=== PATIENT | female | born 1970 | race Caucasian/White ===

== ENCOUNTER → 2017-04-23 | Outpatient (CLI) | payer BC ==
[~2017-04-23] MED LIST: ALLOPURINOL100 MG PO; BACTRIM DS TAB1 EACH PO; BELLADONNA-OPI1 EACH PR; CEFTIN250 MG/5 M; CIPRO500 MG PO; DIFLUCAN150 MG PO; DITROPAN XL5 MG PO; ESTRADIOL1 MG PO; ESTRADIOL2 MG PO; KETOROLAC TROME10 MG PO; LISINOPRIL5 MG PO; NORCO 10-325 T1 EACH; POTASSIUM CHLO10 ME1 PO; POTASSIUM CITR10 MEQ PO; PROMETHAZINE HC25 M1 PO; SERTRALINE HCL100 MG PO; TAMSULOSIN HCL0.4 MG PO; TYLENOL WITH C1 EACH PO; ULTRAM50 MG PO; UROCIT-K15 MEQ PO; Z.0.ESTRACE0.5 MG PO; ZOLOFT100 MG PO
--- NOTE | 2017-04-23 12:46 | Diagnostic Imaging Report ---
PROCEDURE: CT ABDOMEN AND PELVIS WITHOUT CONTRAST TECHNIQUE: The abdomen and pelvis were scanned utilizing a multidetector helical scanner from the diaphragm to the lesser trochanter without contrast. No IV contrast was administered because per physician request). Coronal and sagittal multiplanar reformations were obtained. COMPARISON: [facility], CT, CT ABDOMEN/PELVIS , 12/05/2015, 11:22. INDICATIONS: R/O STONES FINDINGS: ABSENCE OF INTRAVENOUS CONTRAST DECREASES SENSITIVITY FOR DETECTION OF FOCAL LESIONS AND VASCULAR PATHOLOGY. LOWER THORAX: Mild bibasilar patchy ground glass density suggestive of subsegmental atelectasis. The HEPATOBILIARY: Severe hepatic steatosis again observed. No biliary ductal dilatation. SPLEEN: No splenomegaly. PANCREAS: No focal masses or ductal dilatation. ADRENALS: No adrenal nodules. KIDNEYS/URETERS: No hydronephrosis. Bilateral low-attenuation lesions consistent with cysts, the largest in the anterior interpolar region of the right kidney measuring 2.0 cm on image 72 series 3. There are bilateral nonobstructing renal calculi, the largest in the posterior interpolar region of the right kidney measuring 1.05 cm in the lower pole anteriorly on coronal image 63. There is a 0.8 cm calculus within the left renal pelvis on image 60 series 3; this calculus was previously located in the upper pole of the left kidney. A 0.8 cm high attenuation lesion in the upper pole of the left kidney laterally on image 45 series 3 represent a hyperdense cyst, however, not fully characterized due to the lack of contrast. A similar lesion measuring 0.8 cm is present no pole of the left kidney on images 76 series 3. PELVIC ORGANS/BLADDER: Status post hysterectomy. PERITONEUM / RETROPERITONEUM: No free air or fluid. LYMPH NODES: No lymphadenopathy. VESSELS: Unremarkable. GI TRACT: No distention or wall thickening. Hypodense foci within the otherwise normal appendix consistent with appendicoliths. BONES AND SOFT TISSUES: Small fat-containing left inguinal hernia. No acute osseous abnormality. IMPRESSION: 1. Bilateral nonobstructing nephrolithiasis as detailed above. No hydronephrosis. 2. Severe hepatic steatosis. Joseph Vance M.D. Dictated by: Joseph Vance M.D. on 04/23/2017 at 12:53 Electronically approved by: Joseph Vance M.D. on 04/23/2017 at 12:53
== END ==
LOC: CT 04-21 16:43
PROVIDERS: ATTEND Urology
DX: N20.0 Calculus of kidney (principal)
CPT/HCPCS: 74176

== ENCOUNTER 2017-04-29 09:49 | Observation (INO) | payer BC ==
[~2017-04-29] VITALS: Ht 160 cm; Wt 79.2 kg
[~2017-04-29 09:49] MED LIST changes: -CEFTIN250 MG/5 M; +CEFTRIAXONE SOD 1 GM VIAL ONE; -NORCO 10-325 T1 EACH
--- NOTE | 2017-04-29 10:01 | Diagnostic Imaging Report ---
PROCEDURE:X-RAY ABDOMEN - KUB COMPARISON:CT abdomen and pelvis 04/23/2017. CT abdomen and pelvis 12/05/2015 INDICATIONS:PREOPERATIVE XRAY FOR KIDNEY STONE REMOVAL FINDINGS: There is a non-obstructed bowel-gas pattern. There are no calcifications projected over the renal shadows, expected course of the ureters or bladder. Phleboliths are present in the pelvis. There are no acute osseous abnormalities. The lung bases are clear. CONCLUSION: No acute radiographic abnormality. Dictated by: Clifton Ward M.D. on 04/29/2017 at 10:09 Electronically approved by: Clifton Ward M.D. on 04/29/2017 at 10:09
[2017-04-29] MEDS ORDERED: BELLADONNA/OPIUM 60 MG SUPP PR ONE (10:34)
[2017-04-29] MEDS ORDERED: IOPAMIDOL 610MG/1ML 300 MG/ML VIAL IV ONE (10:34)
[2017-04-29] MEDS ORDERED: NALOXONE HCL INJ 0.4 MG/ML AMP IV PRN (11:30)
[2017-04-29] MEDS ORDERED: MORPHINE SULFATE 1 MG/ML 30ML PCA IV PRN (11:30)
[2017-04-29] MEDS ORDERED: ONDANSETRON HCL INJ 2 MG/ML VIAL IV PRN (11:30)
[2017-04-29] MEDS ORDERED: ACETAMINOPHEN 1000 MG/100 ML IV PRN (11:30)
[2017-04-29] MEDS ORDERED: DIPHENHYDRAMINE HCL INJ 50 MG/ML VIAL IM PRN (11:30)
[2017-04-29] MEDS ORDERED: FENTANYL CITRATE/PF 100MCG/2 ML INJ ONE ×2 (11:39→14:06)
[2017-04-29] MEDS ORDERED: METOCLOPRAMIDE HCL 10 MG/2ML VIAL ONE (11:39)
[2017-04-29] MEDS ORDERED: MORPHINE SULFATE 5 MG/ML VIAL ONE (13:39)
[2017-04-29] MEDS ORDERED: PROMETHAZINE HCL (IM) 25 MG/ML VIAL ONE (13:39)
[2017-04-29] MEDS ORDERED: MIDAZOLAM HCL 2 MG/2 ML VIAL ONE (14:06)
[2017-04-29] MEDS ORDERED: MORPHINE SULFATE 1 MG/ML 30ML PCA ONE (15:43)
[2017-04-29] MEDS: PHENAZOPYRIDINE HCL 100 MG TAB PO SCH ×2 (16:30→17:39)
[2017-04-29 16:31] VITALS: BP 139/63
[2017-04-29 16:34] VITALS: BP 139/63
[2017-04-29] MEDS: D5.45%NS/KCL 20MEQ 1,000 ML IV SCH (16:50)
[2017-04-29 17:01] VITALS: BP 139/63
[2017-04-29] MEDS: DOCUSATE SODIUM 100 MG CAP PO SCH (17:38)
[2017-04-29] MEDS ORDERED: LIDOCAINE HCL 2% LOCAL INJ 5 ML SDV VIAL INJ ONE (17:58)
[2017-04-29] MEDS ORDERED: PROPOFOL IV EMULSION 10 MG/ML 20 ML VIAL ONE (17:58)
[2017-04-29] MEDS ORDERED: DEXAMETHASONE SOD PHOS INJ 4 MG/ML VIAL ONE (17:58)
[2017-04-29] MEDS ORDERED: ONDANSETRON HCL INJ 2 MG/ML VIAL ONE (17:58)
[2017-04-29] MEDS ORDERED: SEVOFLURANE INHAL SOLN 250 ML PEN BTL ONE (17:58)
[2017-04-29 20:00] VITALS: BP 124/67
[2017-04-29] MEDS: BELLADONNA/OPIUM 60 MG SUPP PR PRN (21:41)
[2017-04-30] MEDS: D5.45%NS/KCL 20MEQ 1,000 ML IV SCH ×2 (01:45→12:30)
[2017-04-30 02:28] VITALS: BP 108/59
[2017-04-30] MEDS: BELLADONNA/OPIUM 60 MG SUPP PR PRN ×3 (03:33→15:55)
[2017-04-30 06:20] LABS: BASOPHILS % 0.1 % (0.0-1.0); EOSINOPHILS % 0.1 % (0.0-6.0); HEMATOCRIT 32.4 % (34.2-44.1); HEMOGLOBIN 10.7 g/dL (12.0-16.0); LYMPHOCYTES # (AUTO) 1.6 (1.0-3.2); LYMPHOCYTES % 16.2 % (18.0-39.1); MEAN CORPUSCULAR HEMOGLOBIN 29.1 pg (28-32); MONOCYTES # (AUTO) 0.7 (0.2-0.8); MONOCYTES % 6.6 % (4.4-11.3); NEUTROPHILS # (AUTO) 7.5 (2.1-6.9); NEUTROPHILS % 76.7 % (38.7-80.0); PLATELET COUNT 162 x10e3/uL (140-360); RED BLOOD COUNT 3.68 x10e6/uL (3.6-5.1); RED CELL DISTRIBUTION WIDTH 13.1 % (11.7-14.4)
[2017-04-30 06:36] VITALS: BP 106/55
[2017-04-30 06:46] LABS: ALANINE AMINOTRANSFERASE 53 IU/L (0-55); ALBUMIN 3.4 g/dL (3.5-5.0); ALKALINE PHOSPHATASE 59 IU/L (40-150); ANION GAP 13.6 mmol/L (8-16); BLOOD UREA NITROGEN 14 mg/dL (7-26); BUN/CREATININE RATIO 15 (6-25); CALCIUM 8.5 mg/dL (8.4-10.2); CARBON DIOXIDE 23 mmol/L (22-29); CHLORIDE 108 mmol/L (98-107); CREATININE, SERUM 0.92 mg/dL (0.57-1.11); EST GLOMERULAR FILTRATION RATE > 60 ML/MIN (60-); GLUCOSE 142 mg/dL (74-118); POTASSIUM 4.6 mmol/L (3.5-5.1); SODIUM 140 mmol/L (136-145)
[2017-04-30 07:40] VITALS: BP 113/56
[2017-04-30] MEDS: DOCUSATE SODIUM 100 MG CAP PO SCH ×2 (08:48→15:59)
[2017-04-30] MEDS: PHENAZOPYRIDINE HCL 100 MG TAB PO SCH ×3 (08:48→15:59)
[2017-04-30] MEDS ORDERED: CEFTRIAXONE SOD 1 GM VIAL IV SCH (09:00)
[2017-04-30 09:08] LABS: CHOL/HDL RATIO 5.5 (3.0-3.6)
[2017-04-30] MEDS ORDERED: HYDROCODONE/APAP 10MG-325MG TAB PO PRN (09:15)
--- NOTE | 2017-04-30 09:28 | History and Physical ---
SHORTSTAY CHIEF COMPLAINT: Flank pain. HISTORY OF PRESENT ILLNESS: This is a 46-year-old white woman who has a known history of recurrent nephrolithiasis. Patient underwent a CT of the abdomen and pelvis without contrast on April 23, 2017, which revealed bilateral nonobstructive nephrolithiasis, but it did reveal a 0.8-cm calculus within the left renal pelvis that previously was in the upper pole of the left kidney. Her urologist, namely Dr. Juan Jose Corbin, felt that since there was migration of this renal calculus, that further evaluation and treatment was necessary. Patient states that for the past week or 2 prior to admission she was experiencing left flank pain with visible hematuria. Patient denies any fever or chills. Yesterday on admission, the patient underwent successful left ureteroscopy with lower stent placement. The patient tolerated the procedure well. Patient was admitted to the observation unit for pain control. Patient is currently on a TOY STUFFER pump receiving intravenous morphine, which she is tolerating well. Patient voices no complaints today. Blood work done today revealed a white blood cell count of 9700 with 76% segmented neutrophils. Patient's hemoglobin was 10.7 g percent. Patient's BUN and creatinine is [address] of the abdomen and pelvis the patient underwent on April 23, 2017, did reveal severe hepatic steatosis. PAST MEDICAL HISTORY 1. Hypertension. 2. Recurrent nephrolithiasis. 3. Polycystic kidney/liver disease. 4. Prediabetes. 5. Fatty liver disease. 6. Migraine headaches. 7. Hypertensive heart disease. SURGICAL HISTORY 1. Left heart catheterization. 2. Total abdominal hysterectomy. 3. Left kidney cyst drainage. 4. Left ureteral stent placement and removal multiple times (last episode was yesterday, April 29, 2017). 5. Left foot surgery. 6. Right kidney cyst drainage. 7. Multiple cystoscopies with subsequent stent placement and stone extractions. FAMILY HISTORY: Multiple family members with polycystic kidney disease. ALLERGIES: NO KNOWN DRUG ALLERGIES. SOCIAL HISTORY: The woman is . She has 3 healthy children. Patient denies any tobacco use, but she does drink alcohol socially. MEDICATIONS 1. Tylenol No. 3 with codeine 1 pill every 6 hours p.r.n. pain. 2. Estradiol 2 mg daily. 3. Potassium tartrate 15 mEq t.i.d. PHYSICAL EXAMINATION GENERAL: She is awake, alert and oriented. Very pleasant and cooperative with exam. She is in no obvious distress. Her boyfriend is at bedside. VITALS: Height is 5 feet 3 inches, weight 174 pounds. Calculated body index 30. Blood pressure 160/55, pulse 55, respiratory rate 18, temperature 97.6, oxygen saturation 94% on room air. INTEGUMENT: Skin is warm and dry. No pallor of conjunctivae. Anicteric sclerae. Moist mucous membranes. CARDIOVASCULAR: Regular rate and rhythm. LUNGS: No rales. No rhonchi or wheezing. ABDOMEN: Soft. Normal bowel sounds. Nontender. SPINE/TORSO: Patient does have slight left flank tenderness. EXTREMITIES: Without edema or deformity. NEUROLOGICAL: Intact. IMPRESSION 1. Status post left ureteroscopy with left stent placement. 2. Bilateral nonobstructing nephrolithiasis. 3. Fatty liver disease. 4. Obesity. Calculated body mass index is 30. PLAN 1. Will discharge the patient home today with hydrocodone in the form of [place] 10 per 325 mg 1 pill every 6 hours p.r.n. pain, 20 prescribed and no refills. 2. Recommend the patient lose 10 pounds in regards to her fatty liver disease. 3. Informed the patient that she is not to drink more than 1-2 alcoholic drinks in a 24-hour period because of her fatty liver disease. 4. The patient will follow up with her primary care physician, namely myself, Dr. Luis A Condon, within the next 2-3 weeks. Will discuss case with the patient's urologist, namely Dr. Corbin. I spent 45 minutes in the care of this patient. Job#: [id number] FEDERICO NEW
[2017-04-30 11:44] VITALS: BP 126/58
[2017-04-30 15:49] VITALS: BP 112/56
[2017-04-30] MEDS ORDERED: NORCO 10-325 T1 EACH (16:21)
[2017-04-30] MEDS ORDERED: CEFTIN250 MG/5 M (16:21)
--- NOTE | 2017-07-02 02:33 | Operative Report ---
DATE OF PROCEDURE: April 29, 2017 PREOPERATIVE DIAGNOSES 1. Left nephrolithiasis. 2. Hematuria. POSTOPERATIVE DIAGNOSES 1. Left nephrolithiasis. 2. Hematuria. 3. Mild cystocele. 4. Minimal atrophic vaginitis. 5. Proximal left ureteral stricture. OPERATIONS PERFORMED 1. Cystourethroscopy with bilateral ureteral catheterization and retrograde ureteropyelography (separate procedure performed for the hematuria). 2. Interpretation of retrograde ureteropyelography. 3. Supervision of fluoroscopy. No radiologist present. 4. Left ureteroscopy with dilation of proximal ureteral stricture (separate procedure performed for diagnosis of stricture). 5. Left ureteroscopy with Holmium laser lithotripsy and placement of stent (separate procedure performed for the nephrolithiasis). 6. Urological services for supervision and interpretation of ureteroscopy. 7. Pelvic examination under anesthesia. ANESTHESIA: General. COMPLICATIONS: None. CLINICAL SUMMARY: Elena Ferraro is a very complicated 46-year-old woman with adult-onset polycystic kidney disease. The patient has undergone multiple procedures. She has recurrent stone. This stone is symptomatic. The patient is brought to the operating room for management of the stone and to help her renal colic. She is aware of the risks of bleeding, infection, injury to adjacent structures, need for additional procedures, and elected to proceed. OPERATIVE PROCEDURE IN DETAIL: Informed consent was verified. Elena Ferraro was properly identified and taken to the operating room, placed on the cystoscopy table in supine position. Anesthesia was uneventfully begun. The patient was then carefully and gently re-positioned in the dorsal lithotomy position with all pressure points well padded. Her genitalia were prepared and draped in usual sterile fashion. A 22.5-Filipino cystoscope sheath with obturator in place was atraumatically inserted into the patient's urethra and the bladder was drained. Panendoscopy of the urinary bladder revealed no suspicious mucosal lesions. There were no stones and no diverticula. Normally positioned and configured ureteral orifices were identified. Ureteral catheter was used to cannulate each ureter and retrograde ureteropyelograms were performed. Flexible ureteroscope was then brought up over a placed guidewire on the left hand side. We brought it to the level of the proximal ureter where we identified a proximal ureteral stricture. We dilated across this stricture and then we were able to pass the ureteroscope to the level of the kidney. Within the kidney, we identified a significantly-sized stone. We performed Holmium laser lithotripsy and pulverized the stone into multiple smaller fragments. We sampled some of the fragments and sent for chemical analysis. With cystoscopic and fluoroscopic guidance, a left-sided indwelling ureteral stent was then placed. It was coiled in the patient's kidney as well as patient's bladder. The retaining suture was cut short. Interpretation of retrograde ureteropyelography. Contrast was instilled in a retrograde fashion bilaterally. On the right hand side, there appeared to be stone in the lower pole bridger corresponding to the CT findings. The collecting system was distorted by the cyst. On the left hand side, there was an abrupt obstruction at the proximal ureter. This corresponds to the location of the ureteral stricture that we dilated. There was hydronephrosis present and the stent was in good position, coiled in the patient's kidney as well as the patient's bladder at the end the case. Patient's bladder was then drained. Cystoscope was withdrawn. Pelvic examination under anesthesia revealed a minimal cystocele and very minimal atrophic vaginitis. A belladonna and opium suppository was placed. The patient was uneventfully reversed from anesthesia and taken to the recovery room in stable condition. Explicit postoperative instructions were given. We will admit the patient for observation and pain control overnight and hopefully discharge her on postop day 1. Obviously, the patient will return to the operating room to remove her stent and perform another ureteroscopy and evaluate the stricture. Job#: [id number] FRIEDA
== END 2017-04-30 17:10 | disposition home or self-care (01) ==
LOC: OR 09:49 → IMCU 15:51
PROVIDERS: ADMIT Internal Medicine; ATTEND Internal Medicine
DX: N20.0 Calculus of kidney (principal); N13.1 Hydronephrosis with ureteral stricture, not elsewhere classified; Z87.442 Personal history of urinary calculi; E66.9 Obesity, unspecified; Z68.30 Body mass index [BMI] 30.0-30.9, adult; K76.0 Fatty (change of) liver, not elsewhere classified; I11.9 Hypertensive heart disease without heart failure; R31.9 Hematuria, unspecified; N81.10 Cystocele, unspecified; N95.2 Postmenopausal atrophic vaginitis
CPT/HCPCS: 36415; 52356; 74000; 74420; 80053; 80061; 83036; 85025; 88300; C1758; C1766; C2617; G0378 ×2; J0696 ×2; J1100; J2001; J2250; J2270 ×3; J2405 ×2; J2550; J2765; Q9967; 74018

== ENCOUNTER → 2017-06-03 | Day surgery (SDC) | payer BC ==
[~2017-06-03] MED LIST changes: +BELLADONNA/OPIUM 60 MG SUPP PR ONE; +CEFTIN250 MG/5 M; -CEFTRIAXONE SOD 1 GM VIAL ONE; +DEXAMETHASONE SOD PHOS INJ 4 MG/ML VIAL ONE; +FENTANYL CITRATE/PF 100MCG/2 ML INJ ONE; +GENTAMICIN 80MG/NS 100 ML 200 ML IV ONE; +IOPAMIDOL 610MG/1ML 300 MG/ML VIAL IV ONE; +KETOROLAC TROMETHAMINE 30 MG/ML VIAL ONE; +LEVOFLOXACIN 500MG/D5W 100ML 100 ML IV ONE; +LIDOCAINE HCL 2% LOCAL INJ 5 ML SDV VIAL INJ ONE; +MIDAZOLAM HCL 2 MG/2 ML VIAL ONE; +MORPHINE SULFATE INJ 10 MG/ML ONE; +NORCO 10-325 T1 EACH; +ONDANSETRON HCL INJ 2 MG/ML VIAL ONE; +PROPOFOL IV EMULSION 10 MG/ML 20 ML VIAL ONE; +SEVOFLURANE INHAL SOLN 250 ML PEN BTL ONE
--- OUTSIDE RECORDS SUMMARY | 2017-06-03 09:01 | XMS REPORT ---
Author Author [facility] Address Unknown Phone Unavailable Care Team Providers Care Assistant Director Of Public Works Name Role Phone RODRIGUEZ JACOME Unavailable Unavailable Problems This patient has no known problems. Allergies, Adverse Reactions, Alerts This patient has no known allergies or adverse reactions. Medications This patient has no known medications. Results Test Description Test Time Test Comments Text Results Atomic Results Result Comments ABDOMEN-1VIEW (KUB) [place] [address] Patient Name: SREEDHAR MARRERO MR #: [id number] : 1970 Age/Sex: 46/F Req #: [id number] Adm Physician: Ordered by: RODRIGUEZ JACOME MD Report #: [id number] Location: OR Room/Bed: Procedure: [id number] DX/ABDOMEN-1VIEW (KUB) Exam Date: Exam Time: REPORT STATUS: Signed PROCEDURE: X-RAY ABDOMEN - KUB COMPARISON: CT abdomen and pelvis 04/23/2017. CT abdomen and pelvis 12/05/2015 INDICATIONS: PREOPERATIVE XRAY FOR KIDNEY STONE REMOVAL FINDINGS: There is a non-obstructed bowel-gas pattern. There are no calcifications projected over the renal shadows, expected course of the ureters or bladder. Phleboliths are present in the pelvis. There are no acute osseous abnormalities. The lung bases are clear. CONCLUSION: No acute radiographic abnormality. Dictated by: Lima Guan M.D. on 04/29 at 10:09 Electronically approved by: Lima Guan M.D. on 2017 at 10:09 Dictated By: LIMA GUAN MD 1009 Transcribed By: DEMETRIO on 04/29/17 1009 COPY TO: RODRIGUEZ JACOME MD CT ABDOMEN/PELVIS WO [place] [address] Patient Name: SREEDHAR MARRERO MR #: [id number] : 1970 Age/Sex: 46/F Req #: [id number] Adm Physician: Ordered by: RODRIGUEZ JACOME MD Report #: [id number] Location: CT Room/Bed: Procedure: [id number] CT/CT ABDOMEN/PELVIS WO Exam Date: 04/23/17 Exam Time: 1030 REPORT STATUS: Signed PROCEDURE: CT ABDOMEN AND PELVIS WITHOUT CONTRAST TECHNIQUE: The abdomen and pelvis were scanned utilizing a multidetector helical scanner from the diaphragm to the lesser trochanter without contrast. No IV contrast was administered because per physician request). Coronal and sagittal multiplanar reformations were obtained. COMPARISON: [facility], CT, CT ABDOMEN/PELVIS WO, 12/05/2015, 11:22. INDICATIONS: R/O STONES FINDINGS: ABSENCE OF INTRAVENOUS CONTRAST DECREASES SENSITIVITY FOR DETECTION OF FOCAL LESIONS AND VASCULAR PATHOLOGY. LOWER THORAX: Mild bibasilar patchy ground glass density suggestive of subsegmental atelectasis. The HEPATOBILIARY: Severe hepatic steatosis again observed. No biliary ductal dilatation. SPLEEN: No splenomegaly. PANCREAS: No focal masses or ductal dilatation. ADRENALS: No adrenal nodules. KIDNEYS/ URETERS: No hydronephrosis. Bilateral low-attenuation lesions consistent with cysts, the largest in the anterior interpolar region of the right kidney measuring 2.0 cm on image 72 series 3. There are bilateral nonobstructing renal calculi, the largest in the posterior interpolar region of the right kidney measuring 1.05 cm in the lower pole anteriorly on coronal image 63. There is a 0.8 cm calculus within the left renal pelvis on image 60 series 3; this calculus was previously located in the upper pole of the left kidney. A 0.8 cm high attenuation lesion in the upper pole of the left kidney laterally on image 45 series 3 represent a hyperdense cyst, however, not fully characterized due to the lack of contrast. A similar lesion measuring 0.8 cm is present no pole of the left kidney on images 76 series 3. PELVIC ORGANS/BLADDER: Status post hysterectomy. PERITONEUM / RETROPERITONEUM: No free air or fluid. LYMPH NODES: No lymphadenopathy. VESSELS: Unremarkable. GI TRACT: No distention or wall thickening. Hypodense foci within the otherwise normal appendix consistent with appendicoliths. BONES AND SOFT TISSUES: Small fat-containing left inguinal hernia. No acute osseous abnormality. IMPRESSION: 1. Bilateral nonobstructing nephrolithiasis as detailed above. No hydronephrosis. 2. Severe hepatic steatosis. Joseph Beck M.D. Dictated by: Joseph Beck M.D. on 04/23/2017 at 12: 53 Electronically approved by: Joseph Beck M.D. on 04/23/2017 at 12:53 Dictated By: ANDREW BECK MD, MD 1253 Transcribed By: DEMETRIO on 04/23 1253 COPY TO: RODRIGUEZ JACOME MD
[2017-06-03 09:50] LABS: BASOPHILS % 0.5 % (0.0-1.0); EOSINOPHILS # (AUTO) 0.3 (0.0-0.4); EOSINOPHILS % 4.3 % (0.0-6.0); HEMATOCRIT 35.8 % (34.2-44.1); HEMOGLOBIN 11.9 g/dL (12.0-16.0); LYMPHOCYTES # (AUTO) 1.8 (1.0-3.2); LYMPHOCYTES % 30.3 % (18.0-39.1); MEAN CORPUSCULAR HEMOGLOBIN 28.9 pg (28-32); MEAN CORPUSCULAR HGB CONC 33.2 g/dL (31-35); MEAN CORPUSCULAR VOLUME 86.9 fL (81-99); MONOCYTES # (AUTO) 0.5 (0.2-0.8); MONOCYTES % 7.9 % (4.4-11.3); NEUTROPHILS # (AUTO) 3.4 (2.1-6.9); NEUTROPHILS % 56.7 % (38.7-80.0); PLATELET COUNT 159 x10e3/uL (140-360); RED BLOOD COUNT 4.12 x10e6/uL (3.6-5.1); RED CELL DISTRIBUTION WIDTH 12.4 % (11.7-14.4)
[2017-06-03 10:16] LABS: ANION GAP 14.2 mmol/L (8-16); BLOOD UREA NITROGEN 23 mg/dL (7-26); BUN/CREATININE RATIO 27 (6-25); CALCIUM 9.3 mg/dL (8.4-10.2); CARBON DIOXIDE 21 mmol/L (22-29); CHLORIDE 108 mmol/L (98-107); CREATININE, SERUM 0.84 mg/dL (0.57-1.11); EST GLOMERULAR FILTRATION RATE > 60 ML/MIN (60-); GLUCOSE 101 mg/dL (74-118); POTASSIUM 4.2 mmol/L (3.5-5.1); SODIUM 139 mmol/L (136-145)
--- NOTE | 2017-06-03 11:14 | Diagnostic Imaging Report ---
PROCEDURE:X-RAY ABDOMEN - KUB COMPARISON:04/29/2017. INDICATIONS:PREOPERATIVE XRAY FOR KIDNEY STONE SURGERY FINDINGS: Interval placement of a left internal ureteral stent. The proximal locking loop projects over the expected region of the upper pole collecting system. The distal locking loop projects over the expected region of the left side of the bladder. No suspicious calcifications project over the renal shadows, left ureteral stent, expected right ureteral course, or urinary bladder. Bowel gas pattern is nonobstructive. Regional skeletal structures are intact. CONCLUSION: Interval placement of a left internal ureteral stent, positioned as described. Otherwise unchanged radiographic appearance of the abdomen relative to 04/29/2017. Dictated by: Dalton Pina M.D. on 06/03/2017 at 11:13 Electronically approved by: Dalton Pina M.D. on 06/03/2017 at 11:13
--- NOTE | 2017-08-09 09:25 | Operative Report ---
DATE OF PROCEDURE: June 03, 2017 PREOPERATIVE DIAGNOSES 1. Left nephrolithiasis. 2. Foreign body (left indwelling ureteral stent). 3. Cystocele. 4. Urethral hypermobility. OPERATIONS PERFORMED 1. Cystourethroscopy with complicated removal of left indwelling ureteral stent (separate procedure performed with the resectoscope for the diagnosis of the stent). 2. Left flexible ureteropyeloscopy with stone manipulation (separate procedure performed for the diagnosis of the stone done with a separate scope.) 3. Radiological services for supervision and interpretation of ureteroscopy. 4. Interpretation of retrograde ureteropyelography. 5. Supervision of fluoroscopy. No radiologist present. 6. Pelvic examination under anesthesia. ANESTHESIA: General. COMPLICATIONS: None. CLINICAL SUMMARY: Elena Ferraro is a 46-year-old woman with polycystic autosomal dominant kidney disease. She is a recurrent stone former. She underwent management of the stone and placement of a stent. She was found to have a proximal ureteral stricture on the left hand side. She is brought to the operating room today to remove her stent and hopefully render her stent-free and stone-free. She is aware of the risks of bleeding, infection, injury to adjacent structures, need for additional procedures and elected to proceed. OPERATIVE PROCEDURE IN DETAIL: Informed consent was verified. Elena Ferraro was properly identified and taken to the operating room and placed on the cystoscopy table in the supine position. Anesthesia was uneventfully begun. The patient was then carefully and gently repositioned in the dorsal lithotomy position with all pressure points well-padded. Her genitalia were prepared and draped in the usual sterile fashion. A 22.5-Azerbaijani cystoscope sheath with visual obturator in place was atraumatically inserted in the patient's urethra and bladder was drained. Panendoscopy of the urinary bladder revealed no suspicious mucosal lesions. No tumors. No stones and no diverticula. The stent was noted to be emerging from left ureteral orifice. A guidewire was then placed alongside the stent and guided to the level of the patient's kidney. The stent was then grasped, completely removed and discarded. A semi-rigid ureteroscope was then placed alongside the guidewire and guided into the distal left ureter. We did not notice any stones. A secondary guidewire was left. Flexile ureteroscope was then placed over the guidewire and guided to the level of the patient's proximal ureter. We identified this wide caliber band at the ureteropelvic junction consistent with a left proximal ureteral stricture. This was not clinically significant as we were able to get the scope past this region. Panendoscopy of the renal collecting system reveals fine sand throughout the kidney. Most significantly, 5 stones were identified. We copiously irrigated all the sand loose from the renal mucosa so hopefully this patient may pass all the stone fragments. We carefully exited the ureter. We examined it confirming the proximal ureteral stricture that may not be clinically significant. There were no suspicious lesions or additional stones within the ureter. The patient's bladder was drained. Cystoscope was withdrawn. Pelvic examination under anesthesia revealed a grade 2 cystocele. No rectocele. No abnormal palpable masses could be appreciated. There was urethral hypermobility present. The patient was uneventfully reversed from anesthesia and taken to the recovery room in stable condition. There were no complications with the procedure. She tolerated the procedure well. Explicit postoperative instructions were given. Will follow the patient in the office. Job#: [id number] RI cc:ANNALISA CHANEL MD
== END | disposition home or self-care (01) ==
LOC: OR 08:59
PROVIDERS: ATTEND Urology
DX: N20.0 Calculus of kidney (principal); N81.10 Cystocele, unspecified; N36.41 Hypermobility of urethra; Z46.6 Encounter for fitting and adjustment of urinary device; Q61.2 Polycystic kidney, adult type
CPT/HCPCS: 36415; 52352; 74018; 74420; 80048; 85025; J1100; J1580; J1885; J1956; J2001; J2250; J2270; J2405; Q9967

== ENCOUNTER 2018-11-02 12:38 | Inpatient (IN) | payer BC, OTHER ==
[~2018-11-02] VITALS: Ht 160 cm; Wt 77.6 kg
[~2018-11-02 12:38] MED LIST changes: -BELLADONNA/OPIUM 60 MG SUPP PR ONE; -DEXAMETHASONE SOD PHOS INJ 4 MG/ML VIAL ONE; -FENTANYL CITRATE/PF 100MCG/2 ML INJ ONE; -GENTAMICIN 80MG/NS 100 ML 200 ML IV ONE; -IOPAMIDOL 610MG/1ML 300 MG/ML VIAL IV ONE; -KETOROLAC TROMETHAMINE 30 MG/ML VIAL ONE; -LEVOFLOXACIN 500MG/D5W 100ML 100 ML IV ONE; -LIDOCAINE HCL 2% LOCAL INJ 5 ML SDV VIAL INJ ONE; -MIDAZOLAM HCL 2 MG/2 ML VIAL ONE; -MORPHINE SULFATE INJ 10 MG/ML ONE; +NORCO 10-325 T1 EACH PO; -ONDANSETRON HCL INJ 2 MG/ML VIAL ONE; -PROPOFOL IV EMULSION 10 MG/ML 20 ML VIAL ONE; -SEVOFLURANE INHAL SOLN 250 ML PEN BTL ONE
[2018-11-02] MEDS ORDERED: ONDANSETRON HCL INJ 2MG/ML 2ML 2 MG/ML VIAL IV STA ×2 (13:11→14:58)
[2018-11-02] MEDS ORDERED: SODIUM CHLORIDE 0.9% 1000ML 1,000 ML IV STA (13:11)
[2018-11-02 13:43] LABS: BASOPHILS % 0.3 % (0.0-1.0); BILIRUBIN,URINE NEGATIVE (NEGATIVE); CLARITY,URINE CLEAR (CLEAR); COLOR,URINE YELLOW (YELLOW); EOSINOPHILS # (AUTO) 0.4 (0.0-0.4); EOSINOPHILS % 5.4 % (0.0-6.0); HEMATOCRIT 37.4 % (34.2-44.1); HEMOGLOBIN 12.3 g/dL (12.0-16.0); KETONES,URINE NEGATIVE (NEGATIVE); LEUKOCYTE ESTERASE ,URINE TRACE (NEGATIVE); LYMPHOCYTES # (AUTO) 2.1 (1.0-3.2); LYMPHOCYTES % 28.2 % (18.0-39.1); MEAN CORPUSCULAR HEMOGLOBIN 28.5 pg (28-32); MEAN CORPUSCULAR HGB CONC 32.9 g/dL (31-35); MEAN CORPUSCULAR VOLUME 86.6 fL (81-99); MONOCYTES # (AUTO) 0.5 (0.2-0.8); NEUTROPHILS # (AUTO) 4.3 (2.1-6.9); NEUTROPHILS % 58.7 % (38.7-80.0); NITRITE,URINE NEGATIVE (NEGATIVE); PLATELET COUNT 173 x10e3/uL (140-360); PROTEIN,URINE DIPSTICK NEGATIVE (NEGATIVE); RED BLOOD COUNT 4.32 x10e6/uL (3.6-5.1); RED CELL DISTRIBUTION WIDTH 12.5 % (11.7-14.4); URINE UROBILINOGEN 0.2 mg/dL (0.2 - 1)
[2018-11-02 13:58] LABS: WBC,URINE (MAN) 0-5 /HPF (0-5)
[2018-11-02 13:59] LABS: AMORPHOUS SEDIMENT,URINE MODERATE (FEW); BACTERIA,URINE MANY /HPF; EPITHELIAL CELLS,URINE FEW /LPF
[2018-11-02 14:00] LABS: ALANINE AMINOTRANSFERASE 63 IU/L (0-55); ALKALINE PHOSPHATASE 85 IU/L (40-150); ANION GAP 14.1 mmol/L (8-16); BLOOD UREA NITROGEN 19 mg/dL (7-26); BUN/CREATININE RATIO 25 (6-25); CALCIUM 9.6 mg/dL (8.4-10.2); CARBON DIOXIDE 21 mmol/L (22-29); CHLORIDE 107 mmol/L (98-107); CREATININE, SERUM 0.77 mg/dL (0.57-1.11); EST GLOMERULAR FILTRATION RATE > 60 ML/MIN (60-); GLUCOSE 89 mg/dL (74-118); POTASSIUM 4.1 mmol/L (3.5-5.1); SODIUM 138 mmol/L (136-145)
[2018-11-02] MEDS ORDERED: MORPHINE SULFATE INJ 4 MG/ML INJ 1ML IV NR (14:00)
--- NOTE | 2018-11-02 14:28 | Diagnostic Imaging Report ---
Exam: KUB - 2 views Clinical History: Right flank pain Comparison: KUB of 06/03/2017 Findings: Compared to the prior KUB of 06/03/2017, there has been interval removal of the previously seen left nephroureteral stent and placement of a right nephroureteral stent. The proximal locking loop of the right stent is not well formed, likely overlying the superior aspect of the right renal pelvis. The distal loop projects over the bladder. No radiographically apparent renal calculi. Nonobstructive bowel gas pattern. The osseous structures appear unremarkable. No free air. Impression: Right nephroureteral stent in place with proximal locking loop not well formed. No radiographically apparent renal calculi. Signed by: Juana Metz MD on 11/02/2018 2:25 PM
[2018-11-02 14:58] VITALS: BP 188/78
[2018-11-02] MEDS ORDERED: MORPHINE SULFATE 5 MG/ML VIAL IV ONE (15:00)
[2018-11-02] MEDS: CEFTRIAXONE SOD 1 GM/NS 50 ML 50 ML IV SCH ×2 (15:07→21:45)
[2018-11-02] MEDS ORDERED: MORPHINE SULFATE INJ 4 MG/ML INJ 1ML IV ONE (15:15)
[2018-11-02] MEDS ORDERED: MORPHINE SULFATE 2 MG/ML SYR 1ML IV PRN (15:30)
[2018-11-02 16:45] VITALS: BP 154/80
[2018-11-02] MEDS: SODIUM CHLORIDE 0.9% 1000ML 1,000 ML IV SCH (17:00)
--- NOTE | 2018-11-02 17:00 | NUR ---
Received from ER at 1644, Pt is admitted for right flank pain. Pt is aox4 and able to verbalize needs. Pt is able to ambulate with min assist. Pt is on IVF NS @ 100ml/hr. Dr. Corbin was called by ER doctor.
--- NOTE | 2018-11-02 18:33 | Diagnostic Imaging Report ---
ADDENDUM #1 Right ureteral stent catheter in reasonable anatomic position. Signed by: Dr. Bryan Smith M.D. on 11/02/2018 7:16 PM ORIGINAL REPORT EXAM: CT Abdomen and Pelvis WITHOUT contrast INDICATION: Right flank pain. Urinary tract infection. Stent. Hysterectomy ^recent right stent placement ^[id number] ^1750 ^Y COMPARISON: 03/07/2015 TECHNIQUE: Abdomen and pelvis were scanned utilizing a multidetector helical scanner from the lung base to the pubic symphysis without administration of IV contrast. Absence of intravenous contrast decreases sensitivity for detection of focal lesions and vascular pathology. Coronal and sagittal reformations were obtained. Routine protocol was performed. IV CONTRAST: None ORAL CONTRAST: Water COMPLICATIONS: None RADIATION DOSE: Total DLP: 464 mGy*cm Estimated effective dose: (DLP x 0.015 x size factor) mSv CTDIvol has been reviewed. It is below the limits set by the Radiation Protocol Committee (RPC). Dose modulation, iterative reconstruction, and/or weight based adjustment of the mA/kV was utilized to reduce the radiation dose to as low as reasonably achievable. FINDINGS: LINES and TUBES: Right ureteral stent catheter. LOWER THORAX: Unremarkable HEPATOBILIARY: Hepatic steatosis. 2.6 cm caudate lobe cyst. No biliary ductal dilation. GALLBLADDER: No radio-opaque stones or sludge. No wall thickening. SPLEEN: No splenomegaly. PANCREAS: No focal masses or ductal dilatation. ADRENALS: No adrenal nodules KIDNEYS/URETERS: No perinephric fat stranding. No hydronephrosis. Numerous nonobstructing right and left renal stones. Multiple left and right-sided renal cysts. Additional subcentimeter hypodensities are too small to characterize. GI TRACT: No abnormal distention, wall thickening, or evidence of bowel obstruction. Appendix is normal. PELVIC ORGANS/BLADDER: Unremarkable. LYMPH NODES: No lymphadenopathy. VESSELS: Unremarkable. PERITONEUM / RETROPERITONEUM: No free air or fluid. BONES: Unremarkable. SOFT TISSUES: Unremarkable. IMPRESSION: 1. No perinephric fat stranding. No hydronephrosis. Numerous nonobstructing right and left renal stones. Multiple left and right-sided renal cysts. Additional subcentimeter hypodensities are too small to characterize. 2. Fatty liver. Signed by: Dr. Bryan Smith M.D. on 11/02/2018 6:29 PM
[2018-11-02] MEDS: ONDANSETRON HCL INJ 2MG/ML 2ML 2 MG/ML VIAL IV PRN (18:36)
[2018-11-02] MEDS: MORPHINE SULFATE INJ 4 MG/ML INJ 1ML IV PRN (18:36)
--- NOTE | 2018-11-02 18:42 | History and Physical ---
CHIEF COMPLAINT: Nausea and flank pain. HISTORY OF PRESENT ILLNESS: This is a 48-year-old white woman, who presents to [facility] emergency room with 2-day history of bilateral worsening right-sided flank pain as well as nausea. The patient states she does have slight dysuria. On October 11, 2018, the patient underwent right ureteral stent placement with right-sided laser lithotripsy. She has also a diagnosis of right pyelonephritis at that time. The patient was sent home on 14 days oral ciprofloxacin which she fully completed. The patient spoke to urologist who told her to come to the emergency room today. In the emergency room on this visit, the patient was found to have a white blood cell count of 7300 with 58% segmenters. The patient's BUN and creatinine were 19 and 0.77 respectively. Serum bicarb is 21. Potassium is 4.1. Sodium is 138. Patient's AST and ALT were 55 and 63 respectively. The patient has had a known history of fatty liver disease. The patient had a plain film of the abdomen performed in the emergency room that revealed right nephroureteral stent in place with no radiographic evidence of renal calculi. The patient was admitted. The patient had a urinalysis then performed in the emergency room which revealed clear yellow urine with pH of 5.5, 3+ blood, 11-20 red blood cells per high-power field, 0-5 white blood cells per high-power field, and many bacteria. The patient was admitted for further evaluation and treatment. REVIEW OF SYSTEMS: GENERAL: Weight has been stable. No fever or chills. HEENT: No headaches. No vision changes. CARDIOVASCULAR/RESPIRATORY: No chest pain. GI: Complains of nausea, but no vomiting for the past couple of days. Denies any diarrhea or constipation. : Complains of slight burning as well as right flank pain for the last two days. The patient states she had postoperative hematuria after she received the stent on October 11, 2018, but this has since resolved. NEUROMUSCULAR: No limb weakness or numbness. The patient does complain of right flank pain for the past couple of days. ALLERGIES: NO KNOWN DRUG ALLERGIES. PAST MEDICAL HISTORY: 1. Recurrent kidney stones. 2. Fatty liver disease. 3. Polycystic liver/kidney disease. 4. Hypertensive heart disease with mild obesity BMI of 31. 5. Migraine headaches. PAST SURGICAL HISTORY: 1. Right ureteral stent placement with laser lithotripsy on October 11, 2018. 2. Multiple ureteral stent placements and removal. 3. Left heart catheterization. 4. Total abdominal hysterectomy. 5. Left foot surgery. 6. Right kidney cyst drainage. 7. Multiple cystoscopies and subsequent stent placement and stone extractions. FAMILY HISTORY: Polycystic kidney and liver disease. SOCIAL HISTORY: Recently remarried. She has three healthy children. The patient denies any history of tobacco use but does drink alcohol socially. MEDICATIONS: 1. Ciprofloxacin 250 mg b.i.d. 14 days (the patient completed this regimen recently). 2. Ditropan 5 mg t.i.d. 3. Phenergan 25 mg b.i.d. p.r.n. nausea and vomiting. 4. Tylenol No. 3 one pill every 4 hours p.r.n. mild pain. 5. [place] 10/325, one pill twice a day as needed for severe pain. PHYSICAL EXAMINATION: GENERAL: She is awake, alert, and fluent, very pleasant. She has family members at bedside. VITAL SIGNS: Height 5 feet 3 inches, weight 134 pounds, BMI 30. Blood pressure is 138/86, pulse 84, respiratory rate 18, oxygen saturation 96%, temperature 97.5. INTEGUMENT: Skin is warm and dry. No pallor, jaundice, or diaphoresis. HEENT: Anicteric sclerae. Moist mucous membranes. NECK: Supple. CARDIOVASCULAR: Regular rate and rhythm. LUNGS: No rales, no rhonchi. ABDOMEN: Benign. Normal bowel sounds. Nontender. Spine/torso patient has tenderness when palpating the right costovertebral angle area. EXTREMITIES: No edema or deformity. ASSESSMENT: 1. Urinary tract infection. 2. Recent right ureteral stent placement with lithotripsy and stone extraction. 3. Recurrent obstructive kidney stones. 4. Hypertensive heart disease. 5. Polycystic kidney disease. PLAN: 1. Order CT of the abdomen and pelvis without contrast to assess for any evidence of pyelonephritis. 2. Intravenous fluids. 3. Urine culture. 4. Intravenous ceftriaxone. 5. Pain control. 6. Antiemetics. 7. Blood pressure monitoring. I spent 45 minutes in the care of this patient. MD HEMA Mishra/DYLAN /[id number] MTDD
--- NOTE | 2018-11-02 19:00 | NUR ---
Called CT results to Dr. Corbin and received orders to have radiologist make a note about right ureteral stent.
[2018-11-02 20:00] VITALS: BP 138/74
[2018-11-02 23:45] VITALS: BP 138/74
[2018-11-03] VITALS (8 sets, daily range): BP systolic 134–169; BP diastolic 71–94
[2018-11-03] MEDS: SODIUM CHLORIDE 0.9% 1000ML 1,000 ML IV SCH ×2 (04:41→14:45)
[2018-11-03] MEDS: MORPHINE SULFATE INJ 4 MG/ML INJ 1ML IV PRN ×5 (04:41→22:09)
[2018-11-03 06:29] LABS: BASOPHILS % 0.4 % (0.0-1.0); EOSINOPHILS # (AUTO) 0.4 (0.0-0.4); EOSINOPHILS % 6.8 % (0.0-6.0); HEMATOCRIT 33.8 % (34.2-44.1); HEMOGLOBIN 11.1 g/dL (12.0-16.0); LYMPHOCYTES # (AUTO) 1.5 (1.0-3.2); LYMPHOCYTES % 27.6 % (18.0-39.1); MEAN CORPUSCULAR HEMOGLOBIN 28.6 pg (28-32); MEAN CORPUSCULAR HGB CONC 32.8 g/dL (31-35); MEAN CORPUSCULAR VOLUME 87.1 fL (81-99); MONOCYTES # (AUTO) 0.4 (0.2-0.8); MONOCYTES % 7.2 % (4.4-11.3); NEUTROPHILS # (AUTO) 3.1 (2.1-6.9); NEUTROPHILS % 57.6 % (38.7-80.0); PLATELET COUNT 133 x10e3/uL (140-360); RED BLOOD COUNT 3.88 x10e6/uL (3.6-5.1); RED CELL DISTRIBUTION WIDTH 12.4 % (11.7-14.4)
[2018-11-03 06:45] LABS: ALANINE AMINOTRANSFERASE 60 IU/L (0-55); ALBUMIN 3.3 g/dL (3.5-5.0); ALKALINE PHOSPHATASE 70 IU/L (40-150); ANION GAP 12.7 mmol/L (8-16); BLOOD UREA NITROGEN 12 mg/dL (7-26); BUN/CREATININE RATIO 16 (6-25); CALCIUM 8.2 mg/dL (8.4-10.2); CARBON DIOXIDE 23 mmol/L (22-29); CHLORIDE 108 mmol/L (98-107); CREATININE, SERUM 0.74 mg/dL (0.57-1.11); EST GLOMERULAR FILTRATION RATE > 60 ML/MIN (60-); GLUCOSE 91 mg/dL (74-118); POTASSIUM 3.7 mmol/L (3.5-5.1); SODIUM 140 mmol/L (136-145)
--- NOTE | 2018-11-03 07:04 | NUR ---
RECEIVED PATIENT RESTING IN BED. NO ACUTE DISTRESS NOTED. PAIN AT A TOLERABLE LEVEL AT THIS TIME. CALL LIGHT WITHIN REACH. BED IN THE LOWEST POSITION.
[2018-11-03] MEDS: CEFTRIAXONE SOD 1 GM/NS 50 ML 50 ML IV SCH ×2 (08:58→20:47)
[2018-11-03] MEDS: ONDANSETRON HCL INJ 2MG/ML 2ML 2 MG/ML VIAL IV PRN ×4 (09:03→22:09)
--- NOTE | 2018-11-03 19:08 | NUR ---
REPORT GIVEN TO ONCOMING NURSE, PATIENT IS RESTING IN BED. NO ACUTE DISTRESS NOTED. PAIN AT A TOLERABLE LEVEL AT THIS TIME. CALL LIGHT WITHIN REACH. BED IN THE LOWEST POSITION. BED ALARM ON.
[2018-11-04] VITALS: BP 160/77
[2018-11-04] MEDS: SODIUM CHLORIDE 0.9% 1000ML 1,000 ML IV SCH (01:51)
[2018-11-04] MEDS: ONDANSETRON HCL INJ 2MG/ML 2ML 2 MG/ML VIAL IV PRN ×2 (03:47→08:38)
[2018-11-04] MEDS: MORPHINE SULFATE INJ 4 MG/ML INJ 1ML IV PRN ×2 (03:47→08:39)
[2018-11-04 04:55] VITALS: BP 147/67
[2018-11-04 05:50] LABS: BASOPHILS % 0.4 % (0.0-1.0); EOSINOPHILS # (AUTO) 0.3 (0.0-0.4); EOSINOPHILS % 6.1 % (0.0-6.0); HEMATOCRIT 32.9 % (34.2-44.1); LYMPHOCYTES # (AUTO) 1.8 (1.0-3.2); LYMPHOCYTES % 32.2 % (18.0-39.1); MEAN CORPUSCULAR HEMOGLOBIN 28.6 pg (28-32); MEAN CORPUSCULAR HGB CONC 33.4 g/dL (31-35); MEAN CORPUSCULAR VOLUME 85.5 fL (81-99); MONOCYTES # (AUTO) 0.4 (0.2-0.8); MONOCYTES % 7.4 % (4.4-11.3); NEUTROPHILS % 53.4 % (38.7-80.0); PLATELET COUNT 147 x10e3/uL (140-360); RED BLOOD COUNT 3.85 x10e6/uL (3.6-5.1); RED CELL DISTRIBUTION WIDTH 12.4 % (11.7-14.4)
[2018-11-04 06:08] LABS: ALANINE AMINOTRANSFERASE 58 IU/L (0-55); ALBUMIN 3.3 g/dL (3.5-5.0); ALKALINE PHOSPHATASE 69 IU/L (40-150); BLOOD UREA NITROGEN 11 mg/dL (7-26); BUN/CREATININE RATIO 14 (6-25); CALCIUM 8.8 mg/dL (8.4-10.2); CARBON DIOXIDE 25 mmol/L (22-29); CHLORIDE 106 mmol/L (98-107); EST GLOMERULAR FILTRATION RATE > 60 ML/MIN (60-); GLUCOSE 97 mg/dL (74-118); SODIUM 138 mmol/L (136-145)
--- NOTE | 2018-11-04 06:52 | NUR ---
RECEIVED PATIENT RESTING IN BED. NO ACUTE DISTRESS NOTED. PAIN AT A TOLERABLE LEVEL AT THIS TIME. CALL LIGHT WITHIN REACH. BED IN THE LOWEST POSITION.
[2018-11-04 07:31] VITALS: BP 126/60
[2018-11-04] MEDS: CEFTRIAXONE SOD 1 GM/NS 50 ML 50 ML IV SCH (08:40)
[2018-11-04 08:56] VITALS: BP 126/60
--- NOTE | 2018-11-04 10:40 | NUR ---
RECEIVED DC ORDER FROM MD. PATIENT IS IN STABLE CONDITION. PAIN AT A TOLERABLE LEVEL AT THIS TIME. IV LINE TO LEFT HAND DCD WITH TIP INTACT, PRESSURE APPLIED TO SITE, NO BLEEDING NOTED. DISCHARGE TEACHING PROVIDED, SHE VERBALIZED UNDERSTANDING. DC FOLDER WITH DC PAPERWORK AND PRESCRIPTIONS ON HAND. PATIENT ACCOMPANIED TO PRIVATE AUTO VIA WHEELCHAIR BY STAFF.
--- NOTE | 2018-11-05 08:58 | NUR ---
Dictated DC summary: [id number]
--- NOTE | 2018-11-05 09:44 | Discharge Summary ---
ADMIT DIAGNOSES: 1. Urinary tract infection. 2. Recent right ureteral stent placement with lithotripsy and stone extraction. 3. Recurrent obstructive kidney stones. 4. Hypertensive heart disease. 5. Polycystic kidney disease. DISCHARGE DIAGNOSES: 1. Streptococcus viridans urinary tract infection, resolving. 2. Recent right ureteral stent placement with lithotripsy and stone extraction. 3. Recurrent obstructive kidney stones. 4. Hypertensive heart disease. 5. Polycystic kidney disease. HOSPITAL COURSE: This is a 48-year-old white woman, who was initially admitted to [facility] with diagnosis of urinary tract infection. The patient recently had undergone right ureteral stent placement with lithotripsy and stone extraction. During this hospitalization, the patient's initial blood cultures did not reveal any growth, but later the final result was changed to Streptococcus viridans 10,000 to 50,000 colony-forming units per mL urine. The patient improved clinically during this hospitalization with intravenous fluids and analgesics and intravenous antibiotics, namely ceftriaxone. The patient's hospitalization was unremarkable. The patient was seen by urologist during hospitalization, namely Dr. Corbin. During her hospitalization, the patient underwent a CT of the abdomen and pelvis without contrast that did not reveal any perinephric fat stranding or hydronephrosis. Numerous nonobstructing right and left renal stones were appreciated. She was also found to have multiple left and right renal cysts as well as fatty liver. Moreover, the patient was found to have a 2.6 cm caudate lobe hepatic cyst that was essentially unchanged from previous imaging studies. CONDITION ON DISCHARGE: Stable. DISCHARGE MEDICATIONS: 1. Penicillin V 500 mg p.o. b.i.d. for 7 days. 2. Tylenol No. 3 one every 4 hours p.r.n. pain. 3. Promethazine 25 mg p.o. q.6 hours p.r.n. nausea and vomiting. FOLLOWUP INSTRUCTIONS: The patient was instructed to follow up with primary care physician, namely Dr. Luis A Condon within 7-[address] Corbin on November 13, 2018 for tentative right ureteral stent removal. MD HEMA Mishra/DYLAN /[id number] cc: Juan Jose Corbin MD
[2018-11-11] MEDS ORDERED: PENICILLIN PO (10:43)
== END 2018-11-04 10:42 | disposition home or self-care (01) | DRG 690 ==
LOC: ER 12:38 → ERHOLD 15:28 → MED/SURG3 16:58 → OBSVTOIN 11-03 14:04
PROVIDERS: ADMIT Internal Medicine; ATTEND Internal Medicine
DX: N39.0 Urinary tract infection, site not specified (principal); Q61.3 Polycystic kidney, unspecified; K76.0 Fatty (change of) liver, not elsewhere classified; G43.909 Migraine, unspecified, not intractable, without status migrainosus; I11.9 Hypertensive heart disease without heart failure; B95.4 Other streptococcus as the cause of diseases classified elsewhere; N20.0 Calculus of kidney; Z87.442 Personal history of urinary calculi; Z96.0 Presence of urogenital implants
CPT/HCPCS: 36415; 74018; 74176; 80053; 81001; 82948; 85025; 87086; 99284; G0378; J0696; J2270; J2405; J7030

== ENCOUNTER 2018-11-13 10:10 | Observation (INO) | payer OTHER ==
[~2018-11-13] VITALS: Ht 160 cm; Wt 77.1 kg
[~2018-11-13 10:10] MED LIST changes: +PENICILLIN PO
[2018-11-13] MEDS ORDERED: B&O 60MG R/S 60 MG SUPP PR ONE (10:41)
[2018-11-13] MEDS ORDERED: IOPAMIDOL 610MG/1ML 300 MG/ML VIAL IV ONE (10:41)
[2018-11-13] MEDS ORDERED: GENTAMICIN 80MG/NS 100 ML 200 ML IV ONE (11:02)
[2018-11-13] MEDS ORDERED: AMPICILLIN SOD 1 GM/NS 50ML 50 ML IV ONE (11:15)
[2018-11-13] MEDS ORDERED: ONDANSETRON HCL INJ 2MG/ML 2ML 2 MG/ML VIAL ONE ×2 (13:31→14:53)
[2018-11-13] MEDS ORDERED: ONDANSETRON HCL INJ 2MG/ML 2ML 2 MG/ML VIAL IV PRN (13:45)
[2018-11-13] MEDS ORDERED: NALOXONE HCL INJ 0.4 MG/ML AMP IV PRN (13:45)
[2018-11-13] MEDS ORDERED: DIPHENHYDRAMINE HCL 25 MG CAP PO PRN (13:45)
[2018-11-13] MEDS ORDERED: B&O 60MG R/S 60 MG SUPP PR PRN (13:45)
[2018-11-13] MEDS ORDERED: METOCLOPRAMIDE HCL 10 MG/2ML VIAL ONE (13:51)
[2018-11-13] MEDS ORDERED: FENTANYL CITRATE/PF 100MCG/2 ML INJ ONE ×2 (13:53→19:38)
[2018-11-13 14:48] VITALS: BP 141/82
--- NOTE | 2018-11-13 14:50 | NUR ---
patient arrived to unit via stretcher, alert and oriented with family at bedside. call swanson within reach and bed in lowest position
[2018-11-13 14:51] VITALS: BP 141/82
[2018-11-13] MEDS ORDERED: PROPOFOL IV EMULSION 10 MG/ML 20 ML VIAL ONE (14:53)
[2018-11-13] MEDS ORDERED: LIDOCAINE HCL 2% LOCAL INJ 5 ML SDV VIAL INJ ONE (14:53)
[2018-11-13] MEDS ORDERED: DEXAMETHASONE SOD PHOS INJ 4 MG/ML VIAL ONE (14:53)
[2018-11-13] MEDS ORDERED: SEVOFLURANE INHAL SOLN 250 ML PEN BTL ONE (14:53)
[2018-11-13] MEDS: MORPHINE SULFATE 1 MG/ML 30ML PCA IV PRN (15:03)
[2018-11-13] MEDS: OXYBUTYNIN CHLORIDE 5 MG TAB PO SCH ×2 (15:30→20:11)
[2018-11-13] MEDS: PHENAZOPYRIDINE HCL 100 MG TAB PO SCH (17:00)
[2018-11-13] MEDS: DOCUSATE SODIUM 100 MG CAP PO SCH (17:00)
[2018-11-13 17:21] VITALS: BP 141/82
[2018-11-13] MEDS: D5.45%NS/KCL 20MEQ 1,000 ML IV SCH ×2 (18:00→21:34)
[2018-11-13] MEDS: AMPICILLIN SOD 1 GM/NS 50ML 50 ML IV SCH (18:00)
--- NOTE | 2018-11-13 18:20 | Consultation ---
DATE OF CONSULTATION: 11/13/2018 Internal Medicine Consultation HISTORY OF PRESENT ILLNESS: A 48 years old female with past medical history positive mainly for kidney stones. She had underwent a procedure by Dr. Corbin with stent placement due to a kidney stone. Internal medicine consultation was requested by Dr. Corbin for management of her medical condition. REVIEW OF SYSTEMS: CARDIOVASCULAR: No chest pain or palpitation. RESPIRATORY: No shortness of breath. No cough. GASTROINTESTINAL: No nausea or vomiting. No diarrhea. GENITOURINARY: She does have some abdominal pain. No blood in the urine of course. PAST MEDICAL HISTORY: Positive for kidney stones in the past. Cardiac ablation. PAST SURGICAL HISTORY: Appendectomy, complete hysterectomy. ALLERGIES: NOT ALLERGIC TO ANY MEDICATION. SOCIAL HISTORY: As per chart, apparently alcohol use is only socially. She does not smoke. She does not use any illegal drugs. PHYSICAL EXAMINATION: VITAL SIGNS: Blood pressure 132/70, temperature 37.6, heart rate 59 per minute, respiratory rate of . HEART Showed regular rhythm. Normal S1, S2 sound. LUNGS: Clear bilaterally. ABDOMEN: Soft, nontender. No distention or no visceromegaly. EXTREMITIES: No evidence of cyanosis or hematoma. IMPRESSION: 1. Kidney stones status post stent placement. 2. Hematuria secondary to stent. 3. Constipation. 4. Hypertension. PLAN OF TREATMENT: Continue ampicillin q.8 hours. Continue IV fluids 135 mL an hour Tylenol with Codeine q.4 hours as needed for pain, belladonna alkaloids and opium q.6 hours. Continue naloxone 0.4 mg as needed for sedation for narcotic. q.4 hours as needed, Zofran 4 mg IV q.8 hours as needed, Colace 100 mg twice a day, oxybutynin 5 mg three times a day, morphine as per ARBOREAL SCIENTIST pump, Pyridium 100 mg once a day. MD JEVON Bella/DYLAN /[id number]
--- NOTE | 2018-11-13 18:45 | NUR ---
walking rounds made with material handler 2nd shift nurse, patient aware of change and in no distress. call swanson within reach, bed in lowest position and at bedside.
[2018-11-13] MEDS ORDERED: MIDAZOLAM HCL 2 MG/2 ML VIAL ONE (19:38)
[2018-11-13 20:00] VITALS: BP 117/62
[2018-11-13 20:11] VITALS: BP 117/62
[2018-11-14 00:12] VITALS: BP 126/59
[2018-11-14] MEDS: AMPICILLIN SOD 1 GM/NS 50ML 50 ML IV SCH (02:00)
[2018-11-14 04:00] VITALS: BP 109/56
[2018-11-14] MEDS: ACETAMINOPHEN/CODEINE 300MG - 30MG TAB PO PRN ×2 (05:01→09:04)
[2018-11-14] MEDS: D5.45%NS/KCL 20MEQ 1,000 ML IV SCH (05:04)
[2018-11-14 05:09] LABS: BASOPHILS % 0.1 % (0.0-1.0); EOSINOPHILS % 0.1 % (0.0-6.0); HEMATOCRIT 33.5 % (34.2-44.1); HEMOGLOBIN 11.2 g/dL (12.0-16.0); LYMPHOCYTES # (AUTO) 1.4 (1.0-3.2); LYMPHOCYTES % 11.6 % (18.0-39.1); MEAN CORPUSCULAR HEMOGLOBIN 28.9 pg (28-32); MEAN CORPUSCULAR HGB CONC 33.4 g/dL (31-35); MEAN CORPUSCULAR VOLUME 86.6 fL (81-99); MONOCYTES # (AUTO) 0.6 (0.2-0.8); MONOCYTES % 4.8 % (4.4-11.3); NEUTROPHILS # (AUTO) 9.7 (2.1-6.9); NEUTROPHILS % 82.7 % (38.7-80.0); PLATELET COUNT 183 x10e3/uL (140-360); RED BLOOD COUNT 3.87 x10e6/uL (3.6-5.1); RED CELL DISTRIBUTION WIDTH 12.9 % (11.7-14.4)
[2018-11-14] MEDS: MORPHINE SULFATE 1 MG/ML 30ML PCA IV PRN (05:15)
[2018-11-14 06:02] LABS: ANION GAP 15.1 mmol/L (8-16); BLOOD UREA NITROGEN 11 mg/dL (7-26); BUN/CREATININE RATIO 13 (6-25); CALCIUM 8.8 mg/dL (8.4-10.2); CARBON DIOXIDE 21 mmol/L (22-29); CHLORIDE 107 mmol/L (98-107); CREATININE, SERUM 0.87 mg/dL (0.57-1.11); EST GLOMERULAR FILTRATION RATE > 60 ML/MIN (60-); GLUCOSE 135 mg/dL (74-118); POTASSIUM 4.1 mmol/L (3.5-5.1); SODIUM 139 mmol/L (136-145)
--- NOTE | 2018-11-14 06:52 | NUR ---
REPORT GIVEN TO ONCOMING NURSE.WALKING ROUNDS MADE.PT RESTING IN BED WITH NO S/S OF DISTRESS.
[2018-11-14 07:40] VITALS: BP 111/58
[2018-11-14 09:00] VITALS: BP 111/58
[2018-11-14] MEDS: PHENAZOPYRIDINE HCL 100 MG TAB PO SCH ×2 (09:00→12:44)
[2018-11-14] MEDS: DOCUSATE SODIUM 100 MG CAP PO SCH (09:00)
[2018-11-14] MEDS: OXYBUTYNIN CHLORIDE 5 MG TAB PO SCH (09:00)
[2018-11-14] MEDS ORDERED: AMPICILLIN SOD 1 GM/NS 50ML 50 ML IV SCH (10:00)
[2018-11-14 11:28] VITALS: BP 109/59
--- NOTE | 2018-11-14 12:09 | Progress Note ---
DATE: Internal Medicine Progress Note SUBJECTIVE: She is doing better. She has 3+ blood in the urine, but less than before. OBJECTIVE: VITAL SIGNS: Blood pressure 111/58, temperature 98.1, heart rate 84 per minute, respiratory rate 21 per minute, and oxygen saturation 95%. ABDOMEN: Soft, nontender. No distention. No visceromegaly. LABORATORY DATA: On the BMP; sodium 139, potassium 4.1, chloride 107, CO2 of 21, BUN 11, creatinine 0.87, and glucose 135. On the CBC, white blood count is elevated 11,700, hemoglobin 11.2, hematocrit 33.5, and platelet count 183,000. FINAL IMPRESSION: 1. Kidney stone, status post stent placement of the right kidney. 2. Hematuria. 3. Leukocytosis. 4. Constipation. 5. Hypertension. PLAN OF TREATMENT: Continue ampicillin q.8 hours. Continue with IV fluids at 125 mL an hours. Tylenol No. 3 q.4 hours as needed for pain. Belladonna alkaloids and opium q.6 hours. Naloxone 0.4 mg as needed for excessive sedation from narcotics. Continue Benadryl 25 mg q.4 hours as needed for itching, Zofran 4 mg IV q.8 hours as needed, Colace 100 mg twice a day for constipation, oxybutynin 5 mg three times a day, and morphine as needed on CONTACT LENS ASSISTANT pump. Continue Pyridium 100 mg daily as needed. MD JEVON Bella/DYLAN /[id number]
[2018-11-14] MEDS ORDERED: TYLENOL WITH C1 EACH PO (14:23)
--- NOTE | 2018-11-14 14:41 | NUR ---
patient alert and oriented, discharge instructions given at this time and patient verbalized understanding. IV discontinued, catheter in tact and small dressing applied. patient refused wheelchair assistance but will ambulate out to personal auto for to drive home.
--- NOTE | 2019-01-13 06:27 | Operative Report ---
DATE OF PROCEDURE: 11/13/2018 SURGEON: Juan Jose Corbin MD PREOPERATIVE DIAGNOSES: 1. Right nephrolithiasis. 2. Right foreign body (indwelling ureteral stent). POSTOPERATIVE DIAGNOSES: 1. Right nephrolithiasis. 2. Right foreign body (indwelling ureteral stent). 3. Urethral hypermobility. 4. Grade 2 cystocele. 5. Grade 1 rectocele. OPERATIONS PERFORMED: 1. Cystourethroscopy with complicated removal of right indwelling ureteral stent (separate procedure performed with separate scope for diagnosis of stent). 2. Complicated right ureteral pyeloscopy with holmium laser lithotripsy and extraction of stones, and insertion of new stent (separate procedure performed for the diagnosis of stent). 3. Radiological services with supervision and interpretation of ureteroscopy. 4. Interpretation of retrograde ureteropyelography. 5. Supervision of fluoroscopy, more than 1 hour. ANESTHESIA: General. COMPLICATIONS: None. CLINICAL SUMMARY: Elena Garza is a complex 48-year-old woman with polycystic ovaries. She has recurrent urolithiasis. She was brought for removal of the stent with evaluation and management of any residual stones. She is aware of the risks of bleeding, infection, injury to adjacent structures, need for additional procedures and elected to proceed. OPERATIVE PROCEDURE IN DETAIL: Informed consent was verified. Elena Garza was properly identified, and taken to the operating room, placed on the cystoscopy table in supine position. Anesthesia was uneventfully begun. The patient was then carefully and gently repositioned in the dorsal lithotomy position with all pressure points well padded. Her genitalia were prepared and draped in usual sterile fashion. The cystoscope sheath was inserted into the patient's urethra and bladder was drained. Panendoscopy of the urinary bladder revealed no suspicion for mucosal lesions, no tumors and no diverticula, the stent emerging from the right ureteral orifice with some degree of encrustation. The guidewire was then placed alongside of the stent and guided to the level of the patient's kidney. The stent was then grasped, completely removed and discarded. A flexible ureteroscopy sheath was utilized, this was placed in an atraumatic fashion. We then placed the ureteroscope through this sheath and guided it into the patient's kidney. We went to the upper pole. The upper pole was significant for mild erythema and no large stone burden. We discovered a very large stone in the lower pole of the kidney in the main moiety. The stone was very large. Holmium laser lithotripsy was performed to pulverize the stone into multiple smaller fragments. This was a very extensive procedure. Once all lasering was complete with cystoscopic, fluoroscopic guidance, the right-sided indwelling ureteral stent was then placed, it was coiled in the patient's kidney as well as the bladder. The retaining suture was cut short. Interpretation of retrograde ureteropyelography contrast was instilled in retrograde fashion on the right hand side by the ureteroscope. There was distortion of the collecting system, there were filling defects in the lower pole part of the kidney, which corresponded to this very large staghorn like stone burden that we had to eliminate. The patient's bladder was drained and the scope was withdrawn. Pelvic examination revealed a grade 1 rectocele, grade 2 cystocele with urethral hypermobility. No abnormal palpable pelvic masses could be appreciated. There were no obvious mucosal lesions. Belladonna and opium suppository were placed. The patient was uneventfully reversed from anesthesia and taken to recovery in stable condition. There were no complications of the procedure. She tolerated the procedure well. Explicit postoperative instructions were given. We will follow the patient up by returning her to the operating room to remove her stent and hopefully render her stent free and stone free on the right-hand side. Once that is done, additional procedure will be warranted later on. Juan Jose Corbin MD [facility] /[id number] cc: Luis A Condon MD
== END 2018-11-14 14:42 | disposition home or self-care (01) ==
LOC: OR 10:10 → MED/SURG 14:01
PROVIDERS: ADMIT Internal Medicine; ATTEND Internal Medicine
DX: Z46.6 Encounter for fitting and adjustment of urinary device (principal); N20.0 Calculus of kidney; K59.00 Constipation, unspecified; I10 Essential (primary) hypertension; N39.0 Urinary tract infection, site not specified; N81.6 Rectocele; N81.10 Cystocele, unspecified; N36.41 Hypermobility of urethra; Z96.0 Presence of urogenital implants; D64.9 Anemia, unspecified; E28.2 Polycystic ovarian syndrome
CPT/HCPCS: 36415; 52352; 52356; 74420; 80048; 84550; 85025; 88300; 93005; C1766; C2617; G0378 ×2; J0290 ×2; J1100; J1580; J2001; J2250; J2270 ×2; J2405; J2704; J2765; J3010; Q9967; 50590

== ENCOUNTER 2018-11-20 05:59 | Observation (INO) | payer OTHER ==
[~2018-11-20] VITALS: Ht 160 cm; Wt 73.9 kg
[2018-11-20] MEDS ORDERED: KETOROLAC TROMETHAMINE 30 MG/ML VIAL IV STA (06:07)
[2018-11-20] MEDS ORDERED: ONDANSETRON HCL INJ 2MG/ML 2ML 2 MG/ML VIAL IV STA (06:07)
[2018-11-20] MEDS ORDERED: CEFTRIAXONE SOD 1 GM/NS 50 ML 50 ML IV ONE (06:15)
[2018-11-20 06:38] LABS: BASOPHILS % 0.3 % (0.0-1.0); EOSINOPHILS # (AUTO) 0.4 (0.0-0.4); EOSINOPHILS % 5.3 % (0.0-6.0); HEMATOCRIT 38.6 % (34.2-44.1); HEMOGLOBIN 13.1 g/dL (12.0-16.0); LYMPHOCYTES # (AUTO) 2.5 (1.0-3.2); LYMPHOCYTES % 32.9 % (18.0-39.1); MEAN CORPUSCULAR HEMOGLOBIN 29.4 pg (28-32); MEAN CORPUSCULAR HGB CONC 33.9 g/dL (31-35); MEAN CORPUSCULAR VOLUME 86.5 fL (81-99); MONOCYTES # (AUTO) 0.7 (0.2-0.8); MONOCYTES % 9.2 % (4.4-11.3); NEUTROPHILS # (AUTO) 3.9 (2.1-6.9); NEUTROPHILS % 51.9 % (38.7-80.0); PLATELET COUNT 183 x10e3/uL (140-360); RED BLOOD COUNT 4.46 x10e6/uL (3.6-5.1); RED CELL DISTRIBUTION WIDTH 12.9 % (11.7-14.4)
[2018-11-20 06:47] LABS: INR 0.98; PROTHROMBIN TIME 13.5 seconds (11.9-14.5)
[2018-11-20 06:48] LABS: PARTIAL THROMBOPLASTIN TIME 32.4 seconds (23.8-35.5)
[2018-11-20 06:53] LABS: ALANINE AMINOTRANSFERASE 65 IU/L (0-55); ALBUMIN 4.1 g/dL (3.5-5.0); ALBUMIN/GLOBULIN RATIO 1.1 (0.8-2.0); ALKALINE PHOSPHATASE 75 IU/L (40-150); ANION GAP 17.2 mmol/L (8-16); BLOOD UREA NITROGEN 24 mg/dL (7-26); BUN/CREATININE RATIO 27 (6-25); CALCIUM 9.9 mg/dL (8.4-10.2); CARBON DIOXIDE 21 mmol/L (22-29); CHLORIDE 105 mmol/L (98-107); CREATININE, SERUM 0.88 mg/dL (0.57-1.11); EST GLOMERULAR FILTRATION RATE > 60 ML/MIN (60-); GLUCOSE 112 mg/dL (74-118); POTASSIUM 4.2 mmol/L (3.5-5.1); SODIUM 139 mmol/L (136-145)
--- NOTE | 2018-11-20 07:29 | Diagnostic Imaging Report ---
Exam: Abdominal film Clinical History: Kidney stone Comparison: None. DISCUSSION: Right renal stent. No calculus. Mild amount of stool overlying the renal shadows limiting evaluation. No dilated, air-filled loops of bowel. No abnormal calcifications. No acute bone abnormality. IMPRESSION: Nonobstructive bowel gas pattern. Signed by: Dr. Chetan Hdz M.D. on 11/20/2018 7:26 AM
[2018-11-20 07:34] LABS: CLARITY,URINE CLEAR (CLEAR); COLOR,URINE YELLOW (YELLOW); LEUKOCYTE ESTERASE ,URINE 1+ (NEGATIVE)
[2018-11-20 07:35] LABS: BILIRUBIN,URINE NEGATIVE (NEGATIVE); KETONES,URINE NEGATIVE (NEGATIVE); NITRITE,URINE NEGATIVE (NEGATIVE); PROTEIN,URINE DIPSTICK NEGATIVE (NEGATIVE); URINE UROBILINOGEN 0.2 mg/dL (0.2 - 1)
[2018-11-20 07:37] LABS: RBC,URINE >50 /HPF (0-5); WBC,URINE (MAN) 21-50 /HPF (0-5)
[2018-11-20 07:38] LABS: BACTERIA,URINE FEW /HPF; EPITHELIAL CELLS,URINE FEW /LPF; MUCUS,URINE FEW (RARE); TRANSITIONAL EPI CELLS,URINE FEW
[2018-11-20] MEDS: CEFTRIAXONE SOD 1 GM/NS 50 ML 50 ML IV SCH (08:02)
[2018-11-20 08:25] VITALS: BP 183/91
[2018-11-20 08:43] VITALS: BP 183/91
[2018-11-20 08:50] VITALS: BP 183/91
--- NOTE | 2018-11-20 08:55 | NUR ---
patient NPO for cystoscopy with stent removal .see admit assess. no distress at this time.
[2018-11-20] MEDS: SODIUM CHLORIDE 0.9% 1000ML 1,000 ML IV SCH ×2 (09:26→21:02)
--- NOTE | 2018-11-20 11:49 | History and Physical ---
CHIEF COMPLAINT: Flank pain. HISTORY OF PRESENT ILLNESS: This is a 48-year-old white woman who presents to [facility] with a 1-week history of worsening right renal colic type pain. A week before today, the patient underwent right ureteral stent removal and then replacement. The patient was actually kept overnight for pain control and was discharged home on Wednesday, November 14, 2018. The patient states that throughout this whole last week her right lumbar abdominal pain has been worsening. The patient denies any gross hematuria. She also denies any nausea or vomiting. Moreover, she denies any fever or chills. In the emergency room, the patient was found to have white blood cell count of 7500 with 51% segmenters. Hemoglobin is 13.1 g/dL. Also in the emergency room, the patient was found to have BUN and creatinine at 24 and 0.88 respectively. Serum, the patient's serum bicarbonate is 21. The patient's potassium is 4.2. The patient's AST and ALT were 236 and 55 respectively. Urinalysis performed in the emergency room revealed clear yellow urine with 1+ leukocyte esterase, 3+ blood, 21-50 white blood cells per high-power field, greater than 50 red blood cells per high-power field with few bacteria. The patient had a plain film abdominal x-ray performed in the emergency room on this visit that revealed a nonobstructive bowel gas pattern with no abnormal calcifications, but did reveal right renal stent, but no obvious calculus. REVIEW OF SYSTEMS: GENERAL: Weight has been stable. No fever or chills. The patient lost 10 pounds over the last 2 weeks unintentionally. HEENT: No headaches. No vision changes. CARDIOVASCULAR: No chest pain or cough. The patient states her blood pressure has been elevated all week. GI: No nausea, vomiting, or diarrhea, but she does complain of worsening right lumbar abdominal pain over the last week. : Denies any gross hematuria, but states she does have pain radiating from right flank area to her right pubic area. NEUROMUSCULAR: No limb weakness or numbness. PAST MEDICAL HISTORY: 1. Recurrent obstructive kidney stones. 2. Polycystic kidney/liver disease. 3. Fatty liver disease. 4. Hypertensive heart disease. 5. Mild obesity. 6. Multiple ureteral stent placement and lithotripsy. 7. Migraine headaches. PAST SURGICAL HISTORY: 1. Multiple ureteral stent placements removal with last ureteral stent placement on November 14, 2018. 2. Left heart catheterization. 3. Total abdominal hysterectomy. 4. Left foot surgery. 5. Right kidney cyst drainage. 6. Multiple cystoscopies. 7. Multiple lithotripsies and stone extractions. FAMILY HISTORY: Polycystic kidney and liver disease. SOCIAL HISTORY: Recently re-. She has 3 healthy children. The patient states one of her daughters actually has polycystic kidney disease. The patient denies any history of tobacco use, but she drinks alcohol socially. ALLERGIES: NO KNOWN DRUG ALLERGIES. CURRENT MEDICATIONS: 1. Tylenol No. 3 one pill every 4 hours p.r.n. pain. 2. Promethazine 25 mg p.o. q.6 hours p.r.n. nausea and vomiting. 3. Penicillin V 500 mg b.i.d. for 7 days (the patient finished this full course of antibiotic a week ago). PHYSICAL EXAMINATION: GENERAL: She is awake, alert, and fluent, very pleasant. Her new is at bedside. VITAL SIGNS: Height 5 feet 3 inches, weight 160 pounds, and BMI 28. Blood pressure is 180/90, pulse is in the 60s, respiratory rate 16, oxygen saturation is 100% on room air, and temperature 98.5. INTEGUMENT: Skin is warm and dry. No pallor, jaundice, or diaphoresis. HEENT: Anicteric sclerae. Moist mucous membranes. NECK: Supple. No evidence of jugular venous distention. CARDIOVASCULAR: Regular rate with an S4 gallop. LUNGS: No rales. No rhonchi or wheezes. ABDOMEN: Soft. She does have tenderness when palpating the right lumbar abdominal area. EXTREMITIES: No edema or deformity. ASSESSMENT: 1. Recurrent obstructive kidney stones. 2. Right renal colic. 3. Recent right ureteral stent placement. 4. Polycystic kidney/liver disease. 5. Hypertensive heart disease. PLAN: 1. Monitor and control blood pressure. 2. Pain control. 3. Intravenous fluids. 4. Consult Urology. 5. The patient most likely will go to the operating room today and have the recent right ureteral stent removed. I spent 45 minutes in care of this patient. MD HEMA Mishra/DYLAN /[id number] MTDD
[2018-11-20] MEDS ORDERED: HYDROMORPHONE 2MG/ML 2 MG/ML ML ONE (13:07)
[2018-11-20] MEDS ORDERED: ONDANSETRON HCL INJ 2MG/ML 2ML 2 MG/ML VIAL ONE ×3 (13:08→14:13)
[2018-11-20] MEDS ORDERED: PROMETHAZINE HCL (IM) 25 MG/ML VIAL ONE (13:14)
[2018-11-20 13:44] VITALS: BP 166/99
[2018-11-20] MEDS: ONDANSETRON HCL INJ 2MG/ML 2ML 2 MG/ML VIAL IV PRN ×2 (13:54→19:20)
[2018-11-20] MEDS ORDERED: PROPOFOL IV EMULSION 10 MG/ML 20 ML VIAL ONE (14:13)
[2018-11-20] MEDS ORDERED: DEXAMETHASONE SOD PHOS INJ 4 MG/ML VIAL ONE (14:13)
[2018-11-20] MEDS ORDERED: SEVOFLURANE INHAL SOLN 250 ML PEN BTL ONE (14:13)
[2018-11-20] MEDS ORDERED: KETOROLAC TROMETHAMINE 30 MG/ML VIAL ONE (14:13)
[2018-11-20] MEDS: B&O 60MG R/S 60 MG SUPP PR PRN ×2 (14:19→21:02)
[2018-11-20] MEDS: HYDROMORPHONE 1MG/1ML INJ IV PRN ×2 (14:38→19:20)
[2018-11-20] MEDS ORDERED: FENTANYL CITRATE/PF 100MCG/2 ML INJ ONE (15:24)
[2018-11-20] MEDS: AMLODIPINE BESYLATE 5 MG TAB PO SCH (15:52)
[2018-11-20] MEDS: BENAZEPRIL HCL 10 MG TAB PO SCH (15:52)
[2018-11-20 15:53] VITALS: BP 152/104
[2018-11-20] MEDS: PHENAZOPYRIDINE HCL 100 MG TAB PO SCH (17:06)
--- NOTE | 2018-11-20 18:13 | NUR ---
no kidney stone found in strained urine this shift
--- NOTE | 2018-11-20 19:00 | NUR ---
received report from day nurse. patient is resting comfortably in bed. bed is in lowest position and call swanson is within reach. will continue to monitor patient.
[2018-11-20 20:00] VITALS: BP 133/75
[2018-11-21] VITALS: BP 90/54
[2018-11-21] MEDS: ACETAMINOPHEN/CODEINE 300MG - 30MG TAB PO PRN ×3 (01:57→14:35)
[2018-11-21 04:00] VITALS: BP 95/60
[2018-11-21] MEDS: B&O 60MG R/S 60 MG SUPP PR PRN (05:20)
[2018-11-21] MEDS: SODIUM CHLORIDE 0.9% 1000ML 1,000 ML IV SCH (05:20)
--- NOTE | 2018-11-21 06:49 | NUR ---
report given to day nurse. patient is resting comfortably in bed. bed is in lowest position and call swanson is within reach.
[2018-11-21 07:38] VITALS: BP 98/64
[2018-11-21 08:08] VITALS: BP 98/64
[2018-11-21] MEDS: PHENAZOPYRIDINE HCL 100 MG TAB PO SCH ×2 (08:08→14:35)
[2018-11-21] MEDS: CEFTRIAXONE SOD 1 GM/NS 50 ML 50 ML IV SCH (08:08)
[2018-11-21] MEDS: BENAZEPRIL HCL 10 MG TAB PO SCH (09:00)
[2018-11-21] MEDS: AMLODIPINE BESYLATE 5 MG TAB PO SCH (09:00)
--- NOTE | 2018-11-21 11:44 | NUR ---
placed courtesy call to Dr.Hampel Jenkins to notify of discharge orders
--- NOTE | 2018-11-21 11:47 | NUR ---
Per Dr.Hampel Jenkins " I'll see patient today and then I'll let her go"
[2018-11-21 11:52] VITALS: BP 104/62
[2018-11-21] MEDS ORDERED: LOTREL 5-10 MG1 EACH PO (12:04)
[2018-11-21 12:07] LABS: BASOPHILS % 0.1 % (0.0-1.0); EOSINOPHILS # (AUTO) 0.1 (0.0-0.4); EOSINOPHILS % 0.5 % (0.0-6.0); HEMOGLOBIN 10.8 g/dL (12.0-16.0); LYMPHOCYTES % 20.1 % (18.0-39.1); MEAN CORPUSCULAR HGB CONC 32.7 g/dL (31-35); MEAN CORPUSCULAR VOLUME 88.5 fL (81-99); MONOCYTES # (AUTO) 0.6 (0.2-0.8); MONOCYTES % 5.8 % (4.4-11.3); NEUTROPHILS # (AUTO) 7.2 (2.1-6.9); NEUTROPHILS % 73.2 % (38.7-80.0); PLATELET COUNT 163 x10e3/uL (140-360); RED BLOOD COUNT 3.73 x10e6/uL (3.6-5.1); RED CELL DISTRIBUTION WIDTH 13.2 % (11.7-14.4)
--- NOTE | 2018-11-21 12:08 | Discharge Summary ---
ADMIT DIAGNOSES: 1. Recurrent obstructive kidney stones. 2. Right renal colic. 3. Recent right ureteral stent placement. 4. Polycystic kidney disease/liver disease. 5. Hypertensive heart disease. DISCHARGE DIAGNOSES: 1. Status post cystoscopy with removal of right ureteral stent. 2. Status post right ureteral stent replacement. 3. Status post extensive laser extraction of multiple kidney stones. 4. Polycystic kidney/liver disease. 5. Hypertensive heart disease. 6. Right renal colic, resolved. HOSPITAL COURSE: This is a 48-year-old white woman, who has a known history of recurrent obstructive kidney stones. She was admitted to [facility] with diagnosis of right renal colic. She had recently had right ureteral stent placed, specifically Tuesday, November 13, 2018. During this brief hospitalization, patient was seen by urologist, namely Dr. Juan Jose Corbin, who performed cystoscopy as well as right ureteroscopy. During this procedure, he removed the previous right ureter stent and performed extensive laser and extraction of multiple kidney stones. He also replaced the stent in the right ureter. The patient's right renal colic did resolve during this hospitalization. Also, during hospitalization, the patient was started on Lotrel (amlodipine/benazepril) 5/10 once daily for blood pressure control. The patient tolerated this medication well, but did cause her to become hypotensive. The patient's hospitalization was unremarkable. CONDITION ON DISCHARGE: Stable. DISCHARGE MEDICATIONS: 1. Lotrel 5/10 half a pill daily. 2. Tylenol No 3 one pill every 6 hours p.r.n. pain. FOLLOWUP INSTRUCTIONS: The patient was instructed to follow up with Dr. Corbin within 1-2 weeks and with her primary care doctor, namely Dr. Luis A Condon within two weeks. MD HEMA Mishra/DYLAN /[id number] cc: Juan Jose Corbni MD MTDD
[2018-11-21 12:51] LABS: ALANINE AMINOTRANSFERASE 54 IU/L (0-55); ALBUMIN 3.3 g/dL (3.5-5.0); ALKALINE PHOSPHATASE 65 IU/L (40-150); BLOOD UREA NITROGEN 16 mg/dL (7-26); BUN/CREATININE RATIO 18 (6-25); CALCIUM 8.4 mg/dL (8.4-10.2); CARBON DIOXIDE 20 mmol/L (22-29); CHLORIDE 111 mmol/L (98-107); CREATININE, SERUM 0.89 mg/dL (0.57-1.11); EST GLOMERULAR FILTRATION RATE > 60 ML/MIN (60-); GLUCOSE 126 mg/dL (74-118); SODIUM 141 mmol/L (136-145)
--- NOTE | 2018-11-21 13:30 | NUR ---
aware of lab results. Per "okay to discharge after sees patient"
[2018-11-21 15:29] VITALS: BP 128/78
--- NOTE | 2018-11-21 15:40 | NUR ---
Dr.Hampel Ratliff at bedside. Patient cleared to discharge per
--- NOTE | 2018-11-21 16:09 | NUR ---
left hand IV discontinued. No signs of infiltration noted. 2x2 gauze and tape placed. Taken via wheelchair to personal car by PCT. Accompanied by . [id number] to time, person, place, situation. Respirations even and unlabored. Denies pain. Discharge instructions, rx, and all personal belongings taken with patient.
--- NOTE | 2019-01-14 04:18 | Operative Report ---
DATE OF PROCEDURE: 11/20/2018 SURGEON: Juan Jose Corbin MD PREOPERATIVE DIAGNOSES: 1. Right nephrolithiasis. 2. Right indwelling ureteral stent. POSTOPERATIVE DIAGNOSES: 1. Right nephrolithiasis. 2. Right indwelling ureteral stent. 3. Grade 1 cystocele. 4. Grade 1 rectocele. OPERATION PERFORMED: 1. Cystourethroscopy with complicated removal of right indwelling ureteral stent (separate procedure performed for the diagnosis of the stent). 2. Complicated right ureteroscopy with holmium laser lithotripsy, stone extraction, and placement of stent (separate procedure performed for the large burden nephrolithiasis). 3. Radiological Services for supervision and interpretation of ureteroscopy. 4. Interpretation of retrograde ureteropyelography. 5. Supervision of fluoroscopy more than 1 hour, no radiologist present. 6. Pelvic examination under anesthesia. ANESTHESIA: General. COMPLICATIONS: None. CLINICAL SUMMARY: Elena Garza is a 48-year-old woman with complicated stone history. She also has polycystic kidney disease, which distorted the anatomy and certainly affects her stone formation rate. The patient was brought to the operating room for the above procedures. She is aware of the risks of bleeding, infection, injury to adjacent structures, need for additional procedures, and elected to proceed. OPERATIVE PROCEDURE IN DETAIL: Informed consent was verified. Elena Garza was properly identified, taken to the operating room, placed on the cystoscopy table in supine position. Anesthesia was uneventfully begun. The patient was then carefully and gently repositioned in dorsal lithotomy position with all pressure points well padded. Her genitalia were prepared and draped in sterile fashion. The cystoscope sheath with obturator in place was atraumatically inserted into the patient's urethra and the bladder was drained. Panendoscopy revealed no suspicion for lesions, no tumors, and no diverticula. There was erythema noted around the right ureteral orifice, where there was a stent emerging. A guidewire was then placed alongside the stent and guided to the level of the patient's kidney. The stent was then grasped, completely removed, and discarded. A flexible ureteroscopy sheath was utilized. We placed the ureteroscopy sheath over the guidewire and brought it to the proximal ureter. We then placed the flexible ureteroscope through the flexible ureteroscopy sheath and brought it to the level of the patient's kidney, where we identified a rather significant amount of stone burden. The patient underwent holmium laser lithotripsy to break the stone burden up into smaller fragments. Multiple passes were then made with the Nitinol tipless basket to extract numerous stone fragments. After working for over an hour, there was significant amount of sand and debris and visualization was starting to become compromised. There may be additional stone burden in the lower pole calyx, but visualization was not adequate to safely pursue in that region. We centrally in this procedure cleared the upper half of the patient's kidney. Following removal of the ureteroscope and examination of the ureter, which was unremarkable. With cystoscopic and fluoroscopic guidance, a right-sided indwelling ureteral stent was then placed. It was coiled in the patient's kidneys as well as the patient's bladder. The retaining suture was cut short. Interpretation of retrograde ureteropyelography contrast was instilled in a retrograde fashion via the ureteroscope. There was distortion of the collecting system as we have documented previously. There was some calyceal fullness and calyceal blunting throughout. Filling defects were noted in the kidney and there seems to be filling defect in the lower pole calyx, which most likely corresponds to stone burden. The stent was in good position, coiled the patient's kidney as well as the patient's bladder at the end of the case. The patient's bladder was drained. Cystoscope was withdrawn. Pelvic examination under anesthesia revealed a grade 1 cystocele and grade 1 rectocele. No abnormal palpable pelvic masses could be appreciated. A belladonna and opium suppository were placed. The patient was uneventfully reversed from anesthesia and taken to recovery room in stable condition. Plan to proceed with admitting the patient for observation for pain management and of course ongoing urological followup. The patient will need to return to the operating room for stent removal and additionally ureteroscopy and indicated procedures. Juan Jose MD [place] [facility] /[id number] cc: Luis A Condon MD
== END 2018-11-21 16:09 | disposition home or self-care (01) ==
LOC: ER 05:59 → ERHOLD 07:53 → IMCU 08:16
PROVIDERS: ADMIT Internal Medicine; ATTEND Internal Medicine
DX: N20.2 Calculus of kidney with calculus of ureter (principal); N30.01 Acute cystitis with hematuria; Z87.442 Personal history of urinary calculi; Z96.0 Presence of urogenital implants; Q61.3 Polycystic kidney, unspecified; Q44.6 Cystic disease of liver; Z82.49 Family history of ischemic heart disease and other diseases of the circulatory system; N20.0 Calculus of kidney; K76.0 Fatty (change of) liver, not elsewhere classified; I11.9 Hypertensive heart disease without heart failure; E66.9 Obesity, unspecified; N81.10 Cystocele, unspecified; N81.6 Rectocele; Z68.28 Body mass index [BMI] 28.0-28.9, adult
CPT/HCPCS: 36415 ×2; 52315; 74018; 74420; 80053 ×2; 81001; 85025 ×2; 85610; 85730; 87086; 88300; 99284; C1758; C1766; C2617; G0378 ×2; J0696 ×2; J1100; J1170 ×2; J1885; J2405; J2550; J2704; J3010; J7030 ×2

== ENCOUNTER 2019-03-25 07:22 | Observation (INO) | payer OTHER ==
[2019-03-25] VITALS (7 sets, daily range): BP systolic 107–125; BP diastolic 58–60
[~2019-03-25] VITALS: Ht 160 cm; Wt 72.6 kg
[~2019-03-25 07:22] MED LIST changes: +LOTREL 5-10 MG1 EACH PO
--- OUTSIDE RECORDS SUMMARY | 2019-03-25 07:26 | XMS REPORT | Summary of Care ---
Author Author [facility] Organization [facility] Address Unknown Phone Unavailable Care Team Providers Care Federal Appellate Clerk Name Role Phone PCP Unavailable Reason for Visit * Reason Comments Disease Management Encounter Details Care Team Description Date Type Department Zi Hall MD [address] [facility] [address] [place] [address] Disease Management 01/04/2019 Office Visit [facility] Nephrology [address]; [address] [place] [address] Allergies No Known Allergiesdocumented as of this encounter (statuses as of 01/07/2019) Medications End Date Status Medication Sig Dispensed Refills Start Date Active estradiol (ESTRACE) 2 MG Take 2 mg by 0 tablet mouth daily. Active Potassium Citrate Take by 0 (UROCIT-K 15 OR) mouth. Active allopurinol (ZYLOPRIM) Take 300 mg 0 300 MG tablet by mouth daily. Active lisinopril (PRINIVIL, Take 1 Tab by 180 Tab 3 ZESTRIL) 20 MG tablet mouth two 9 times daily. 01/04/2019 Discontinued lisinopril (PRINIVIL, Take 1 Tab by 180 Tab 3 ZESTRIL) 20 MG tablet mouth two 6 times daily. documented as of this encounter (statuses as of 01/07/2019) Active Problems Problem Noted Date Polycystic kidney disease 05/22/2015 Nephrolithiasis 05/22/2015 HTN (hypertension) 05/22/2015 PKD (polycystic kidney disease) documented as of this encounter (statuses as of 01/07/2019) Social History Date Tobacco Use Types Packs/Day Years Used Never Smoker Smokeless Tobacco: Never Used Drinks/Week oz/Week Comments Alcohol Use 3 Standard drinks or equivalent 1.8 Yes Sex Assigned at Date Recorded Not on file Industry Job Start Date Occupation Not on file Not on file Not on file Travel End Travel History Travel Start No recent travel history available. documented as of this encounter Last Filed Vital Signs Reading Time Taken Comments Vital Sign 185/101 01/04/2019 3:32 PM CDT Blood Pressure 71 01/04/2019 3:32 PM CDT Pulse 36.8 C (98.3 F) 01/04/2019 3:32 PM CDT Temperature 16 01/04/2019 3:32 PM CDT Respiratory Rate - - Oxygen Saturation - - Inhaled Oxygen Concentration - - Weight 160 cm (5' 3") 01/04/2019 3:32 PM CDT Height - - Body Mass Index documented in this encounter Progress Notes * Zi Hall MD - 01/04/2019 3:00 PM CDT Date: 01/04/19 Patient Name: Elena Garza Patient Date of : 1970 Chief Complaint: Chief Complaint Patient presents with Disease Management History: History of Present Illness: Elena Garza is a 48 y.o. female who presents for follow up. She was l ast seen in 2016. Since then, she reports that she has had ongoing issues with her kidney stones. She also admits that she has not been taking care of herself , she has stopped taking lisinopril 20 off X 2 years. Her primary care physicia n is Dr. Luis A Condon Followed by Dr. Juan Jose Corbin for management of stones for the last 3 months, has d eveloped worsening stones and had uroscopy with stent placement, lithotripsy, in both kidneys. She is also reports to not be taking Urocit-K at this time, is t aking allopurinol given her history of uric acid stones. Current Medications: Current Outpatient Medications Medication Sig Dispense Refill allopurinol (ZYLOPRIM) 300 MG tablet Take 300 mg by mouth daily. estradiol (ESTRACE) 2 MG tablet Take 2 mg by mouth daily. lisinopril (PRINIVIL, ZESTRIL) 20 MG tablet Take 1 Tab by mouth two times da cristian. 180 Tab 3 Potassium Citrate (UROCIT-K 15 OR) Take by mouth. No current facility-administered medications for this visit. Allergies: No Known Allergies Past Medical History: Past Medical History: Diagnosis Date HTN (hypertension) Nephrolithiasis PKD (polycystic kidney disease) Past Surgical History: Past Surgical History: Procedure Laterality Date HX KIDNEY STONE SURGERY Social History: Social History Tobacco Use Smoking status: Never Smoker Smokeless tobacco: Never Used Substance Use Topics Alcohol use: Yes Alcohol/week: 1.8 oz Types: 3 Standard drinks or equivalent per week Family History: +PCKD Review of Systems: Constitutional: no fever, no chills, no night sweats, no unintentional weight ch anges, no fatigue Skin: no rashes, no lesions, no pruritis, no petechiae ENT: no blurry vision, no double vision, no hearing changes, no epistaxis, no or al ulcers Respiratory: no shortness of breath, no cough, no wheezing, no hemoptysis Cardiovascular: no chest pain, no palpitations, no dyspnea of exertion, no parox symal nocturnal dyspnea, no orthopnea Gastrointestinal: no nausea, no vomiting, no diarrhea, no constipation, no abd p ain, no melena/hematochezia Genitourinary: no dysuria, no hematuria, no frequency, no urgency Musculoskeletal: no myalgias, no arthralgias, no stiffness, no tenderness Neurologic: no headache, no numbness/tingling, no weakness, no dizziness, no lig htheadedness Psychiatric: no depression, no insomnia, no excessive drowsiness, no SI Endocrine: no polyuria, no polydipsia, no temp intolerance, no polyphagia Hematologic: no easy bleeding/brusing, no lymphadenopathy, no recurrent infectio ns Examination: BP (!) 185/101 (BP Location: right arm, Patient Position: Sitting, Cuff Size: re gular) | Pulse 71 | Temp 98.3 F (36.8 C) (Oral) | Resp 16 | Ht 5' 3" (1. 6 m) | BMI 28.17 kg/m Constitutional: no acute distress, well nourished, appears stated age HEENT: Normocephalic, atrumatic, extraocular movements intact, mucous membranes moist, clear oropharynx, normal dentition Neck: Supple, no lymphadenopathy, no jugular venous distention CVS: regular rate and rhythm, no murmurs/gallops/rubs, peripheral pulses intact Pulm: lungs clear to auscultation bilaterally, no rales, no wheezes, no rhonchi GI: normal bowel sounds, nontender, nondistended, no organomeagaly Ext: no joint inflammation, no clubbing/cyanosis/edema Skin: no decreased skin turgor, no delayed capillary refill, no rashes, no petec hiae Neurologic: awake, alert, oriented, moving all extremities Data: Laboratory Testing: [facility] Radiology Studies: [facility] Impression: Elena Garza is a 48 y.o. female with a history of: Patient Active Problem List Diagnosis Polycystic kidney disease Nephrolithiasis HTN (hypertension) PKD (polycystic kidney disease) Plan: 1. 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 Lytes: follow up labs 3. Acid-base: follow up labs 4. Volume: euvolemic 5. Heme: follow up labs 6. CKD-MBD: Check Vit D 7. CVS: BP elevated will restart on lisinopril, she will contact me if she has a ny issues. Will monitor BP closely The plan was discussed with the patient who verbalized understanding. Thank you for referring this patient for consultation and allowing me to partici santacruz in her care. Please do not hesitate to call with any questions. Zi Hall MD [facility] Cement Despatch Operatorfront line supervisor, Section of Nephrology [phone] Office: [phone] documented in this encounter Plan of Treatment Care Team Description Date Type Specialty Zi Hall MD [address] [address] [phone] 04/26/2019 Office Visit Nephrology Health Maintenance Due Date Last Done Comments MAMMOGRAM ANNUAL 1970 TETANUS SHOT (ADULT) 1987 HIV SCREENING 1990 CERVICAL CANCER SCREENING 1993 3 YEAR FOLLOW UP FLU VACCINE > 6 MONTHS 11/18/2018 documented as of this encounter Procedures Comments Procedure Name Priority Date/Time Associated Diagnosis URINALYSIS, COMPLETE Routine 01/04/2019 Nephrolithiasis W/REFLEX TO CULTURE 4:10 PM CDT Polycystic kidney disease Essential hypertension RANDOM URINE Routine 01/04/2019 Nephrolithiasis PROTEIN/CREATININE 4:10 PM CDT Polycystic kidney disease Essential hypertension VITAMIN D 25 HYDROXY Routine 01/04/2019 Nephrolithiasis 4:10 PM CDT Polycystic kidney disease Essential hypertension CBC W/AUTO DIFF WITH Routine 01/04/2019 Nephrolithiasis PLATELETS 4:10 PM CDT Polycystic kidney disease Essential hypertension URIC ACID Routine 01/04/2019 Nephrolithiasis 4:10 PM CDT Polycystic kidney disease Essential hypertension PHOSPHORUS Routine 01/04/2019 Nephrolithiasis 4:10 PM CDT Polycystic kidney disease Essential hypertension PTH INTACT Routine 01/04/2019 Nephrolithiasis 4:10 PM CDT Polycystic kidney disease Essential hypertension MAGNESIUM Routine 01/04/2019 Nephrolithiasis 4:10 PM CDT Polycystic kidney disease Essential hypertension COMPREHENSIVE METABOLIC Routine 01/04/2019 Nephrolithiasis PANEL 4:10 PM CDT Polycystic kidney disease Essential hypertension documented in this encounter Results * URIC ACID (01/04/2019 4:10 PM CDT) URIC ACID 4.8 2.7 - 6.1 MG/DL CPL Comment: Unless Otherwise Indicated, All Testing Performed At: [facility], [address] [place], [place] [address] Shot Tube Machine Tender: David Shannon M.D. CLIA Number [id number] [place]. [id number] Specimen Blood Performing Organization Address City/State/Zipcode Phone Number [address] [address] * PTH INTACT (01/04/2019 4:10 PM CDT) PARATHYROID 29 15 - 65 PG/ML CPL HORMONE INTACT Comment: Unless Otherwise Indicated, All Testing Performed At: [facility], [address] [place] [address] Shot Tube Machine Tender: David Shannon M.D. CLIA Number [id number] [place]. [id number] Specimen Blood Performing Organization Address [facility]/Zipcode Phone Number [address] [address] * VITAMIN D 25 HYDROXY (01/04/2019 4:10 PM CDT) [facility] VITAMIN D 40 SEE BELOW NG/ML [facility] 25-HYDROXY Comment: NOTE: 25-HYDROXYVITAMIN D ASSAY INCLUDES 25-HYDROXYVITAMIN D2 AND D3.METHODOLOGY IS CHEMILUMINESCENT IMMUNOASSAY. $$$$$ INTERPRETIVE RANGES $$$$$ PEDIATRIC (<17 YEARS) . . . . . . . . . . . NG/ML 20-100 ADULT: INSUFFICIENT. . . . . . . . . . . . . . NG/ML <20 SUBOPTIMAL. . . . . . . . . . . . . . . NG/ML 20-29 OPTIMAL . . . . . . . . . . . . . . . . . NG/ML 30-100 Unless Otherwise Indicated, All Testing Performed At: [facility], [address] [place] [address] Shot Tube Machine Tender: David Shannon M.D. CLIA Number [id number] [place]. [id number] Specimen Blood Performing Organization Address [facility]/Zipcode Phone Number [address] [address] * MAGNESIUM (01/04/2019 4:10 PM CDT) [facility] MAGNESIUM 2.1 1.6 - 2.6 MG/DL [facility] Comment: Unless Otherwise Indicated, All Testing Performed At: [facility], [address] [place] [address] Shot Tube Machine Tender: David Shannon M.D. CLIA Number [id number] [place]. [id number] Specimen Blood Performing Organization Address [facility]/Zipcode Phone Number [address] [address] * PHOSPHORUS (01/04/2019 4:10 PM CDT) [facility] PHOSPHORUS 3.7 2.5 - 4.5 MG/DL [facility] Comment: Unless Otherwise Indicated, All Testing Performed At: [facility], [address] [place] [address] Shot Tube Machine Tender: David Shannon M.D. CLIA Number [id number] [place]. [id number] Specimen Blood Performing Organization Address City/[facility]/Zipcode Phone Number [facility] [address] [place] [phone] * RANDOM URINE PROTEIN/CREATININE (01/04/2019 4:10 PM CDT) URINE PROTEIN 10 NOT ESTAB MG/DL CPL Comment: Reference interval for random urine samples has not been established. CREATININE 91.2 NOT ESTAB MG/DL CPL URINE Comment: Reference interval for random urine samples has not been established. CALC 110 SEE BELOW MG/G CREAT CPL PROTEIN/CREATIN Comment: INE $$ $$$ INTERPRETIVE INFORMATION $$$$$ NKF ADULT AND CHILD NORMAL RANGE . . . . . .MG/G CREAT<200 AAFP (6-24 MONTHS) NORMAL RANGE . . .MG/G CREAT<500 NEPHROTIC RANGE PROTEINURIA (APPROX) . . . .MG/G CREAT>2-3,000 NKF NORMAL RANGES PREFERRED FOR FIRST MORNING VOID, BUT NON-FIRST MORNING SPECIMENS ARE ACCEPTABLE.FOR ASSESSMENT OF NON-FIRST MORNING SPECIMENS, ADDITIONAL INTERPRETIVE INFORMATION PROVIDED BELOW: AGEMAL E FEMALE (MG/G CREAT)(MG/G CREAT) 7-9<22 0 <300 10-12<220 <340 13-15<150 <390 16-17<190 <350 Refs: National Kidney Foundation K/DOQI 2002. [facility] [place] and [facility] Ankit; Proteinuria in Children. Amer. Fam. Phys. 2010; 82(6): 645-651.[place] Jo-Annv et al. Pediatric Reference Intervals for Random Urine Calcium, Phosphorus and Total Protein. Pediatr Nephrol. 2010; 25:4901-5081. Unless Otherwise Indicated, All Testing Performed At: [facility], [address] [place] [address] Shot Tube Machine Tender: Irene GuerrierIA Number [id number]. [id number] Specimen Performing Organization Address City/[facility]/Zipcode Phone Number [facility] [address] [place] [phone] * URINALYSIS, COMPLETE W/REFLEX TO CULTURE (01/04/2019 4:10 PM CDT) COLOR UA YELLOW YELLOW-STRAW CPL CLARITY UA CLEAR CLEAR CPL SPECIFIC 1.017 1.005 - 1.035 CPL GRAVITY UA LEUKOCYTE NEGATIVE NEGATIVE CPL ESTERASE UA NITRITE UA NEGATIVE NEGATIVE CPL PH UA 6.0 5.0 - 9.0 CPL PROTEIN UA NEGATIVE NEGATIVE CPL GLUCOSE UA NEGATIVE NEGATIVE CPL KETONES UA NEGATIVE NEGATIVE CPL UROBILINOGEN UA <2.0 <=2.0 MG/DL CPL BILIRUBIN UA NEGATIVE NEGATIVE CPL OCCULT BLOOD UA 1+ (A) NEGATIVE CPL WBC UA 0-5 0 - 5 /HPF CPL RBC UA 0-2 0 - 5 /HPF CPL EPITHELIAL 0-5 0 - 10 /HPF CPL CELLS BACTERIA TRACE (A) NEGATIVE CPL Comment: Unless Otherwise Indicated, All Testing Performed At: [facility], [address] [place] [address] Shot Tube Machine Tender: David Shannon M.D. [place] Number [id number] [place]. [id number] Specimen Performing Organization Address City/State/Zipcode Phone Number [address] [address] * COMPREHENSIVE METABOLIC PANEL (01/04/2019 4:10 PM CDT) GLUCOSE 85 70 - 99 MG/DL CPL BLOOD UREA 18 6 - 20 MG/DL CPL NITROGEN CREATININE 0.96 0.60 - 1.30 MG/DL CPL EGFR AA 82 >60 ML/MIN/1.73 CPL EGFR 71 >60 ML/MIN/1.73 CPL BUN/CREAT RATIO 19 6 - 28 RATIO CPL SODIUM 140 133 - 146 MEQ/L CPL POTASSIUM 4.2 3.5 - 5.4 MEQ/L CPL CHLORIDE 101 95 - 107 MEQ/L CPL CO2 21 19 - 31 MEQ/L CPL CALCIUM 9.5 8.5 - 10.5 MG/DL CPL PROTEIN TOTAL 7.6 6.1 - 8.3 G/DL CPL ALBUMIN 4.4 3.5 - 5.2 G/DL CPL GLOBULINS, 3.2 1.9 - 3.7 G/DL CPL SERUM, TOTAL A/G RATIO 1.4 1.0 - 2.6 RATIO CPL BILIRUBIN TOTAL 0.3 <=1.2 MG/DL CPL ALKALINE 92 40 - 118 U/L CPL PHOSPHATASE AST (SGOT) 50 (H) 9 - 40 U/L CPL ALT (SGPT) 61 (H) 5 - 40 U/L CPL Comment: Unless Otherwise Indicated, All Testing Performed At: [facility], [address] [place] [address] Shot Tube Machine Tender: David Shannon M.D. CLIA Number [id number] [place]. [id number] Specimen Blood Performing Organization Address City/[facility] Cent[facility]ode Phone Number [address] [address] * CBC W/AUTO DIFF WITH PLATELETS (01/04/2019 4:10 PM CDT) WHITE BLOOD 6.8 4.0 - 11.0 K/UL CPL CELL COUNT RED BLOOD CELL 4.44 3.80 - 5.10 M/UL CPL COUNT HEMOGLOBIN 12.6 11.5 - 15.5 G/DL CPL HEMATOCRIT 38.0 34.0 - 45.0 % CPL MEAN 85.6 80.0 - 100.0 fL CPL CORPUSCULAR VOLUME MEAN 28.4 27.0 - 34.0 PG CPL CORPUSCULAR HEMOGLOBIN MEAN 33.2 32.0 - 35.5 G/DL CPL CORPUSCULAR HEMOGLOBIN CONC RED CELL 13.0 11.0 - 15.0 % CPL DISTRIBUTION WIDTH NEUTROPHILS % 57.3 40.0 - 74.0 % CPL LYMPHOCYTES % 29.9 19.0 - 48.0 % CPL MONOCYTES % 7.4 4.0 - 13.0 % CPL EOSINOPHILS % 5.0 0.0 - 7.0 % CPL BASOPHILS % 0.4 0.0 - 2.0 % CPL PLATELET COUNT 177 130 - 400 K/UL CPL Comment: Unless Otherwise Indicated, All Testing Performed At: [facility], [address] [place] [address] Shot Tube Machine Tender: David Shannon M.D. CLIA Number [id number]. [id number] Specimen Blood Performing Organization Address [facility] Centercode Phone Number [address] [address] documented in this encounter Visit Diagnoses Diagnosis Essential hypertension - Primary Unspecified essential hypertension Nephrolithiasis Calculus of kidney Polycystic kidney disease Polycystic kidney, unspecified type documented in this encounter Insurance Type Payer Benefit Subscriber ID Effective Phone Address Plan / Dates Group POS [employer]ET[employer] OPEN xxxxxxxxxx 2018-P [address] [id number] HMO/POS/EP [place] [employer] [address] documented as of this encounter
[2019-03-25] MEDS ORDERED: CEFTRIAXONE SOD 1 GM/NS 50 ML 50 ML IV ONE (08:09)
[2019-03-25] MEDS ORDERED: B&O 60MG R/S 60 MG SUPP PR ONE (08:54)
[2019-03-25] MEDS ORDERED: IOPAMIDOL 300MG/ML 50ML INFUS..BTL IV ONE (08:54)
[2019-03-25] MEDS ORDERED: AMPICILLIN SOD 1 GM/NS 50ML 50 ML IV ONE ×2 (09:37→09:40)
[2019-03-25] MEDS ORDERED: D5.45%NS/KCL 20MEQ 1,000 ML IV SCH (10:23)
[2019-03-25] MEDS ORDERED: MORPHINE SULFATE 1 MG/ML 30ML PCA IV PRN (10:30)
[2019-03-25] MEDS ORDERED: DIPHENHYDRAMINE HCL 25 MG CAP PO PRN (10:30)
[2019-03-25] MEDS ORDERED: ACETAMINOPHEN/CODEINE 300MG - 30MG TAB PO PRN (10:30)
[2019-03-25] MEDS ORDERED: NALOXONE HCL INJ 0.4 MG/ML AMP IV PRN (10:30)
[2019-03-25] MEDS ORDERED: METOCLOPRAMIDE HCL 10 MG/2ML VIAL ONE (10:51)
[2019-03-25] MEDS: ONDANSETRON HCL INJ 2MG/ML 2ML 2 MG/ML VIAL IV PRN (11:05)
--- NOTE | 2019-03-25 11:30 | History and Physical ---
CHIEF COMPLAINT: "I had kidney stone surgery today." HISTORY OF PRESENT ILLNESS: This is a 48-year-old white woman, who has known history of recurrent obstructive ureter/kidney stones. States today the patient underwent lasering of multiple left-sided kidney stones. The urologist states that at least six kidney stones were actually lasered. The patient tolerated the procedure quite well. The decision was made to admit the patient to observation unit for pain control and for antinausea medications. The patient states her pain is controlled. Denies any nausea, vomiting. She is currently in the postanesthesia care unit. REVIEW OF SYSTEMS: GENERAL: Weight is stable. No fever or chills. HEENT: No headaches. No vision changes. CARDIOVASCULAR/RESPIRATORY: No chest pain, shortness of breath or cough. GI: No nausea, vomiting at this time. : The patient denies any UTI symptoms, but states that she does have a history of recurrent obstructive kidney stones. The patient also states she has had multiple ureteral stents placed and removed. NEUROMUSCULAR: Denies any limb weakness or numbness, but states at times she does have lower back pain. PAST MEDICAL HISTORY: 1. History of recurrent obstructive kidney stones. 2. Polycystic kidney/liver disease. 3. Hypertensive heart disease. 4. Fatty liver disease. 5. Mild obesity. 6. Migraine headaches. PAST SURGICAL HISTORY: 1. Multiple ureteral stents placed, removed. 2. Multiple kidney laser surgeries. 3. Left heart catheterization. 4. Total abdominal hysterectomy. 5. Left foot surgery. 6. Right kidney cyst drainage. 7. Multiple cystoscopies. 8. Multiple lithotripsies and stone extractions. FAMILY HISTORY: Multiple members with polycystic kidney and liver disease. SOCIAL HISTORY: This woman is . She has three healthy children. The patient states that one of her daughters does have polycystic kidney disease. The patient denies any history of tobacco use. The patient drinks alcohol socially. ALLERGIES: NO KNOWN DRUG ALLERGIES. MEDICATIONS: 1. Tylenol No. 3 one pill daily as needed for lower back pain. 2. Lisinopril 20 mg daily. PHYSICAL EXAMINATION: GENERAL: She is somnolent, but arousable. She is currently in the postanesthesia care unit. VITAL SIGNS: The patient's height 5 feet 3 inches, weight 150 pounds, BMI 29, blood pressure 123/66, pulse 60, respiratory rate 18, temperature is 96.9, and oxygen saturation 100% on room air. INTEGUMENT: Skin is warm and dry. No pallor, jaundice, or diaphoresis. HEENT: Anterior sclerae with moist mucous membranes. NECK: Supple. CARDIOVASCULAR: Regular rate and rhythm. LUNGS: No rales. No rhonchi or wheezes. ABDOMEN: Soft. Normal bowel sounds. SPINE/TORSO: Minimal tenderness on palpating the left flank area. EXTREMITIES: No edema or deformity. NEUROLOGIC: Intact. DIAGNOSES: 1. Status post left-sided kidney stone lasering. 2. History of recurrent obstructive kidney stones. 3. Hypertension. PLAN: 1. Intravenous fluids. 2. Antiemetics. 3. Intravenous analgesics. 4. Monitor in the observation unit. 5. Tentative discharge tomorrow on Tuesday March 26, 2019. I spent 35 minutes in the care of this patient. MD HEMA Mishra/DYLAN /[id number] MTDD
[2019-03-25] MEDS ORDERED: PROMETHAZINE HCL (IM) 25 MG/ML VIAL ONE (11:34)
[2019-03-25] MEDS ORDERED: B&O 60MG R/S 60 MG SUPP PR PRN (11:45)
[2019-03-25] MEDS ORDERED: PROPOFOL IV EMULSION 10 MG/ML 20 ML VIAL ONE (13:58)
[2019-03-25] MEDS ORDERED: DEXAMETHASONE SOD PHOS INJ 4 MG/ML VIAL ONE (13:58)
[2019-03-25] MEDS ORDERED: MIDAZOLAM HCL 2 MG/2 ML VIAL ONE (13:58)
[2019-03-25] MEDS ORDERED: LIDOCAINE HCL 2% LOCAL INJ 5 ML SDV VIAL INJ ONE (13:58)
[2019-03-25] MEDS ORDERED: SEVOFLURANE INHAL SOLN 250 ML PEN BTL ONE (13:58)
[2019-03-25] MEDS ORDERED: ONDANSETRON HCL INJ 2MG/ML 2ML 2 MG/ML VIAL ONE (13:58)
[2019-03-25] MEDS ORDERED: FENTANYL CITRATE/PF 100MCG/2 ML INJ ONE (13:58)
[2019-03-25] MEDS: PIPER-TAZ 3.375 GM 50 ML IV SCH ×2 (15:51→22:29)
[2019-03-25] MEDS: PHENAZOPYRIDINE HCL 100 MG TAB PO SCH ×2 (17:41→18:24)
[2019-03-25] MEDS: DOCUSATE SODIUM 100 MG CAP PO SCH (17:41)
--- NOTE | 2019-03-25 18:02 | NUR ---
Redness and itching to R hand, IV site. Pt c/o pain to area. Fluids stopped and IV dc'd at this time.
--- NOTE | 2019-03-25 18:03 | NUR ---
Benadryl administered at this time. MD Condon paged for s/s of reaction to fluids.
[2019-03-25] MEDS: SODIUM CHLORIDE 0.9% 1000ML 1,000 ML IV SCH (18:25)
[2019-03-25] MEDS: HYDROMORPHONE 1MG/1ML INJ IV PRN (19:50)
[2019-03-26] VITALS: BP 97/48
[2019-03-26] MEDS: HYDROMORPHONE 1MG/1ML INJ IV PRN ×2 (01:06→08:10)
[2019-03-26 05:26] VITALS: BP 117/57
[2019-03-26] MEDS: SODIUM CHLORIDE 0.9% 1000ML 1,000 ML IV SCH ×2 (05:56→14:00)
[2019-03-26] MEDS: PIPER-TAZ 3.375 GM 50 ML IV SCH ×2 (05:56→14:00)
[2019-03-26 06:25] LABS: BASOPHILS % 0.2 % (0.0-1.0); EOSINOPHILS % 0.1 % (0.0-6.0); HEMATOCRIT 33.2 % (34.2-44.1); HEMOGLOBIN 10.9 g/dL (12.0-16.0); LYMPHOCYTES # (AUTO) 1.6 (1.0-3.2); LYMPHOCYTES % 12.9 % (18.0-39.1); MEAN CORPUSCULAR HEMOGLOBIN 29.1 pg (28-32); MEAN CORPUSCULAR HGB CONC 32.8 g/dL (31-35); MEAN CORPUSCULAR VOLUME 88.8 fL (81-99); MONOCYTES # (AUTO) 0.6 (0.2-0.8); MONOCYTES % 5.2 % (4.4-11.3); NEUTROPHILS # (AUTO) 9.8 (2.1-6.9); NEUTROPHILS % 80.9 % (38.7-80.0); PLATELET COUNT 148 x10e3/uL (140-360); RED BLOOD COUNT 3.74 x10e6/uL (3.6-5.1); RED CELL DISTRIBUTION WIDTH 12.9 % (11.7-14.4)
[2019-03-26 06:42] LABS: ALANINE AMINOTRANSFERASE 75 IU/L (0-55); ALBUMIN 3.2 g/dL (3.5-5.0); ALBUMIN/GLOBULIN RATIO 1.1 (0.8-2.0); ALKALINE PHOSPHATASE 60 IU/L (40-150); ANION GAP 11.2 mmol/L (8-16); BLOOD UREA NITROGEN 13 mg/dL (7-26); BUN/CREATININE RATIO 15 (6-25); CALCIUM 8.6 mg/dL (8.4-10.2); CARBON DIOXIDE 22 mmol/L (22-29); CHLORIDE 109 mmol/L (98-107); CREATININE, SERUM 0.87 mg/dL (0.57-1.11); EST GLOMERULAR FILTRATION RATE > 60 ML/MIN (60-); GLUCOSE 111 mg/dL (74-118); POTASSIUM 4.2 mmol/L (3.5-5.1); SODIUM 138 mmol/L (136-145)
--- NOTE | 2019-03-26 07:33 | NUR ---
Received patient and a/ox3, in bed, call light within reach, no resp distress, will monitor.
--- NOTE | 2019-03-26 07:51 | NUR ---
GAVE REPORT TO ONCOMING NURSE. CALL LIGHT WITHIN REACH. PATIENT IN BED.
[2019-03-26] MEDS: ONDANSETRON HCL INJ 2MG/ML 2ML 2 MG/ML VIAL IV PRN (08:30)
[2019-03-26 08:34] VITALS: BP 121/57
[2019-03-26] MEDS ORDERED: POTASSIUM CHLORIDE 20 MEQ TAB CR PO STA (08:39)
[2019-03-26] MEDS ORDERED: BENAZEPRIL PO SCH (09:00)
[2019-03-26] MEDS ORDERED: BENAZEPRIL HCL 10 MG TAB PO SCH (09:00)
[2019-03-26] MEDS ORDERED: AMLODIPINE BESYLATE PO SCH (09:00)
[2019-03-26] MEDS ORDERED: TOLTERODINE TARTRATE 4 MG CAPCR PO SCH (09:00)
[2019-03-26] MEDS ORDERED: AMLODIPINE BESYLATE 5 MG TAB PO SCH (09:00)
[2019-03-26] MEDS ORDERED: [UNRECOGNIZED DRUG - OTHER] PO SCH (09:00)
[2019-03-26] MEDS: DOCUSATE SODIUM 100 MG CAP PO SCH (09:35)
[2019-03-26] MEDS: PHENAZOPYRIDINE HCL 100 MG TAB PO SCH ×2 (09:36→13:00)
[2019-03-26 10:46] VITALS: BP 121/57
[2019-03-26 12:14] VITALS: BP 114/58
--- NOTE | 2019-03-26 12:43 | NUR ---
Rounds by Dr. Corbin and cleared patient for discharge to home.
[2019-03-26] MEDS ORDERED: DETROL LA4 MG PO (14:17)
[2019-03-26] MEDS ORDERED: AUGMENTIN 500-1 EACH PO (14:18)
--- NOTE | 2019-03-26 15:21 | Discharge Summary ---
ADMIT DIAGNOSES: 1. Status post left-sided kidney stone lasering. 2. History of recurrent obstructive kidney stones. 3. Hypertensive heart disease. 4. Polycystic kidney/liver disease. DISCHARGE DIAGNOSES: 1. Status post left-sided kidney stone lasering. 2. History of recurrent obstructive kidney stones. 3. Hypertensive heart disease. 4. Polycystic kidney/liver disease. HOSPITAL COURSE: This 48-year-old white woman has a history of recurrent obstructive kidney stones and polycystic kidney/liver disease. The patient was admitted for elective lasering of left-sided kidney stones. The patient underwent lasering of six kidney stones during this hospital stay. This was performed successfully by Dr. Juan Jose Corbin. The patient was monitored overnight. Her brief hospitalization was unremarkable. Her condition on discharge was stable. She is tolerating a regular diet. DISCHARGE MEDICATIONS: 1. Tylenol No.3 one pill every 4 hours p.r.n. pain, 30 prescribed. 2. Augmentin 500 mg t.i.d. for 10 days. 3. Detrol LA 4 mg one pill daily for 30 days. 4. Lisinopril 20 mg daily. 5. Benazepril 10 mg daily. FOLLOWUP INSTRUCTIONS: The patient is instructed to follow up with her primary care physician namely myself, Dr. Luis A Condon within two weeks and with Dr. Juan Jose Corbin her urologist within three weeks. Luis A Condon MD MEO/MODL /[id number] cc: Juan Jose Corbin MD
[2019-04-07] MEDS ORDERED: ESTRADIOL1 MG PO (14:42)
[2019-04-07] MEDS ORDERED: LISINOPRIL2.5 MG PO (14:42)
[2019-04-07] MEDS ORDERED: MULTI-VITAMIN1 EACH PO (14:42)
--- NOTE | 2019-06-21 23:19 | Operative Report ---
DATE OF PROCEDURE: 03/25/2019 SURGEON: Juan Jose Corbin MD PREOPERATIVE DIAGNOSES: 1. Left nephrolithiasis. 2. Urinary tract infections. POSTOPERATIVE DIAGNOSES: 1. Left nephrolithiasis. 2. Urinary tract infections. 3. Grade 1 cystocele. 4. Grade 1 rectocele. 5. Urethral hypermobility. OPERATIONS PERFORMED: 1. Cystourethroscopy with bilateral ureteral catheterization and retrograde ureteropyelography (separate procedure performed for the urinary tract infections). 2. Interpretation of retrograde ureteropyelography. 3. Supervision of fluoroscopy, no radiologist present. 4. Complicated left ureteropyeloscopy with holmium laser lithotripsy and insertion of stent (separate procedure performed for numerous left-sided stones). 5. Radiological services for supervision and interpretation of ureteroscopy. 6. Pelvic examination under anesthesia. ANESTHESIA: General. COMPLICATIONS: None. CLINICAL SUMMARY: Elena Garza is a 48-year-old woman with the above preoperative diagnose, she is brought for the above procedure. She is aware of the risks of bleeding, infection, injury to adjacent structures, need for additional procedures and elected to proceed. The patient understands she will need additional procedures for sure in order to render her stent free and stone free. She understood these risks and elected to proceed. OPERATIVE PROCEDURE IN DETAIL: Informed consent was verified. Elena Garza was properly identified taken the operative room and placed on the cystoscopy table in supine position. Anesthesia was uneventfully begun. The patient was then carefully gently repositioned in the dorsal lithotomy position with all pressure points well padded. Her genitalia were prepared and draped in usual sterile fashion. The 22.5-Bahamian cystoscope sheath with obturator in place was atraumatically inserted into the patient's urethra and bladder was drained. Panendoscopy revealed minimal trigonitis, but no tumors, no stones, no diverticula, no suspicious mucosal lesions were identified. Ureteral catheter was used to cannulate each ureter and retrograde ureteropyelography was performed. A guidewire was then placed in the left ureter and guided to the level of the patient's kidney. Flexible ureteroscope was then brought up over the guidewire and guided to the level of the patient's kidney. Panendoscopy revealed numerous stones. Holmium laser lithotripsy was then performed of these numerous stones in order to fragment them into smaller fragments. Careful panendoscopy of entire intrarenal collecting system was performed and we lasered numerous stones. With cystoscopic fluoroscopic guidance a left-sided indwelling ureteral stent was then placed. It was coiled in the patient's kidney as well as the patient's bladder. The retaining suture was cut short. Interpretation of retrograde ureteropyelography contrast was instilled in retrograde fashion bilaterally. Both renal collecting systems were distorted by the patient's polycystic kidney disease. The right side appeared relatively free of stones. The prior filling defects that were noted previously were no longer there following the prior stone surgery we have done on this patient. The left side exhibited filling defect. The stent was in good position coiled the patient's left kidney as well as the patient's bladder at the end of the case. The patient's bladder was drained. Cystoscope was withdrawn. Pelvic examination under anesthesia revealed a grade 1 cystocele, grade 1 rectocele, there was urethral hypomobility. No abnormal palpable pelvic masses could be appreciated. There were no obvious mucosal lesions. A belladonna and opium suppository were placed. The patient was uneventfully reversed from anesthesia and taken to recovery room in stable condition. There were no complications to the procedure. She tolerated procedure well. Explicit postop instructions were given. We will follow the patient up in the office. Juan Jose Corbin MD [place]/MODL /[id number] cc: MD Luis A Light MD
== END 2019-03-26 14:47 | disposition home or self-care (01) ==
LOC: OR 07:22 → PACU V 10:28 → MED/SURG 12:19
PROVIDERS: ADMIT Internal Medicine; ATTEND Internal Medicine
DX: N20.0 Calculus of kidney (principal); N28.1 Cyst of kidney, acquired; I11.9 Hypertensive heart disease without heart failure; N39.0 Urinary tract infection, site not specified; N81.10 Cystocele, unspecified; N81.6 Rectocele; N36.41 Hypermobility of urethra; Z87.442 Personal history of urinary calculi; K76.0 Fatty (change of) liver, not elsewhere classified
CPT/HCPCS: 36415; 52356; 74420; 80053; 85025; 93005; C1758; C2617; G0378 ×2; J0290; J0696; J1100; J1170 ×2; J2001; J2250; J2270; J2405 ×2; J2543 ×2; J2550; J2704; J2765; J3010; J7030 ×2; Q9967; C1769

== ENCOUNTER 2020-07-28 23:44 | Emergency (ER) | payer OTHER ==
[~2020-07-28] VITALS: Ht 160 cm; Wt 72.6 kg
[~2020-07-28 23:44] MED LIST changes: +AUGMENTIN 500-1 EACH PO; +DETROL LA4 MG PO; +LISINOPRIL2.5 MG PO; +MULTI-VITAMIN1 EACH PO
[2020-07-29 01:19] LABS: BASOPHILS % 0.5 % (0.0-1.0); EOSINOPHILS # (AUTO) 0.4 (0.0-0.4); EOSINOPHILS % 5.4 % (0.0-6.0); HEMATOCRIT 36.7 % (34.2-44.1); HEMOGLOBIN 12.4 g/dL (12.0-16.0); LYMPHOCYTES # (AUTO) 2.4 (1.0-3.2); LYMPHOCYTES % 30.4 % (18.0-39.1); MEAN CORPUSCULAR HEMOGLOBIN 28.6 pg (28-32); MEAN CORPUSCULAR HGB CONC 33.8 g/dL (31-35); MEAN CORPUSCULAR VOLUME 84.6 fL (81-99); MONOCYTES # (AUTO) 0.6 (0.2-0.8); MONOCYTES % 7.3 % (4.4-11.3); NEUTROPHILS # (AUTO) 4.4 (2.1-6.9); NEUTROPHILS % 56.1 % (38.7-80.0); PLATELET COUNT 183 x10e3/uL (140-360); RED BLOOD COUNT 4.34 x10e6/uL (3.6-5.1); RED CELL DISTRIBUTION WIDTH 12.6 % (11.7-14.4)
[2020-07-29 01:31] LABS: ALANINE AMINOTRANSFERASE 62 IU/L (0-55); ALBUMIN 4.1 g/dL (3.5-5.0); ALBUMIN/GLOBULIN RATIO 1.2 (0.8-2.0); ALKALINE PHOSPHATASE 93 IU/L (40-150); ANION GAP 14.7 mmol/L (8-16); BLOOD UREA NITROGEN 19 mg/dL (7-26); BUN/CREATININE RATIO 20 (6-25); CALCIUM 9.3 mg/dL (8.4-10.2); CARBON DIOXIDE 24 mmol/L (22-29); CHLORIDE 105 mmol/L (98-107); CREATINE KINASE 63 IU/L (29-168); CREATININE, SERUM 0.95 mg/dL (0.57-1.11); EST GLOMERULAR FILTRATION RATE > 60 ML/MIN (60-); GLUCOSE 122 mg/dL (74-118); POTASSIUM 3.7 mmol/L (3.5-5.1); SODIUM 140 mmol/L (136-145)
[2020-07-29 01:34] LABS: INR 0.92
[2020-07-29 01:35] LABS: PARTIAL THROMBOPLASTIN TIME 32.4 seconds (23.8-35.5)
[2020-07-29] MEDS ORDERED: ACETAMINOPHEN 325 MG TAB PO ONE (01:45)
[2020-07-29] MEDS ORDERED: IOPAMIDOL 370 MG/ML 200 ML INFUS..BTL INJ ONE (04:53)
[2020-07-29] MEDS ORDERED: SODIUM CHLORIDE 0.9% 50ML 50 ML ONE (04:53)
== END 2020-07-29 02:57 | disposition home or self-care (01) ==
LOC: ER 07-29
DX: G51.0 Bell's palsy (principal); R94.31 Abnormal electrocardiogram [ECG] [EKG]; I10 Essential (primary) hypertension; Z87.442 Personal history of urinary calculi
CPT/HCPCS: 36415; 70496; 80053; 82550; 82553; 84484; 85025; 85610; 85730; 93005; 99284; Q9967

== ENCOUNTER 2020-11-25 04:16 | Inpatient (IN) | payer OTHER ==
[~2020-11-25] VITALS: Ht 160 cm; Wt 72.6 kg
[2020-11-25] MEDS ORDERED: KETOROLAC TROMETHAMINE 30 MG/ML VIAL IV STA (04:25)
[2020-11-25] MEDS ORDERED: ONDANSETRON HCL INJ 2MG/ML 2ML 2 MG/ML VIAL IV STA (04:25)
[2020-11-25 04:42] LABS: BASOPHILS % 0.2 % (0.0-1.0); EOSINOPHILS # (AUTO) 0.1 (0.0-0.4); EOSINOPHILS % 1.2 % (0.0-6.0); HEMOGLOBIN 11.9 g/dL (12.0-16.0); LYMPHOCYTES # (AUTO) 1.5 (1.0-3.2); LYMPHOCYTES % 16.3 % (18.0-39.1); MEAN CORPUSCULAR HEMOGLOBIN 28.5 pg (28-32); MEAN CORPUSCULAR HGB CONC 32.2 g/dL (31-35); MEAN CORPUSCULAR VOLUME 88.5 fL (81-99); MONOCYTES # (AUTO) 0.6 (0.2-0.8); NEUTROPHILS % 75.8 % (38.7-80.0); PLATELET COUNT 159 x10e3/uL (140-360); RED BLOOD COUNT 4.18 x10e6/uL (3.6-5.1); RED CELL DISTRIBUTION WIDTH 12.7 % (11.7-14.4)
[2020-11-25 04:58] LABS: ANION GAP 16.6 mmol/L (8-16); CALCIUM 9.4 mg/dL (8.4-10.2); CREATININE, SERUM 1.06 mg/dL (0.57-1.11); POTASSIUM 3.6 mmol/L (3.5-5.1)
[2020-11-25 05:37] LABS: CLARITY,URINE CLEAR (CLEAR); COLOR,URINE YELLOW (YELLOW); LEUKOCYTE ESTERASE ,URINE NEGATIVE (NEGATIVE); NITRITE,URINE NEGATIVE (NEGATIVE); PROTEIN,URINE DIPSTICK NEGATIVE (NEGATIVE)
[2020-11-25 05:38] LABS: KETONES,URINE NEGATIVE (NEGATIVE); URINE UROBILINOGEN 0.2 mg/dL (0.2 - 1)
[2020-11-25 05:57] LABS: BACTERIA,URINE FEW /HPF; EPITHELIAL CELLS,URINE RARE /LPF; RBC,URINE 0-5 /HPF (0-5); TRANSITIONAL EPI CELLS,URINE RARE
[2020-11-25] MEDS ORDERED: ONDANSETRON HCL INJ 2MG/ML 2ML 2 MG/ML VIAL IV PRN (06:00)
[2020-11-25] MEDS ORDERED: SODIUM CHLORIDE 0.9% 1000ML 1,000 ML IV SCH (06:00)
[2020-11-25] MEDS ORDERED: MORPHINE SULFATE INJ 4 MG/ML INJ 1ML IV PRN (06:00)
[2020-11-25] MEDS ORDERED: CEFTRIAXONE 1 GM in SODIUM CHLORIDE 0.9% 50ML 50 ML IV ONE (06:15)
[2020-11-25] MEDS ORDERED: HYDROMORPHONE 1MG/1ML INJ IV PRN (06:15)
[2020-11-25] MEDS ORDERED: CEFTRIAXONE 1 GM VIAL ONE (06:18)
[2020-11-25] MEDS ORDERED: IOPAMIDOL 300MG/ML 50ML INFUS..BTL IV ONE (08:14)
[2020-11-25 09:16] VITALS: BP 127/81
[2020-11-25 09:45] VITALS: BP 127/81
[2020-11-25] MEDS: SODIUM CHLORIDE 0.9% 1000ML 1,000 ML IV SCH ×2 (10:00→17:07)
[2020-11-25] MEDS ORDERED: MIDAZOLAM HCL 2 MG/2 ML VIAL ONE (12:50)
[2020-11-25] MEDS ORDERED: FENTANYL CITRATE/PF 100MCG/2 ML INJ ONE (12:50)
[2020-11-25] MEDS ORDERED: EPHEDRINE SULFATE INJ 50 MG/ML VIAL ONE (13:18)
[2020-11-25] MEDS ORDERED: ONDANSETRON HCL INJ 2MG/ML 2ML 2 MG/ML VIAL ONE (13:18)
[2020-11-25] MEDS ORDERED: GLYCOPYRROLATE INJ 0.2 MG/ML VIAL ONE (13:18)
[2020-11-25] MEDS ORDERED: POVIDONE IODINE 0.05% 0.05 % ML PO ONE (13:18)
[2020-11-25] MEDS ORDERED: PROPOFOL IV EMULSION 10 MG/ML 20 ML VIAL ONE (13:18)
[2020-11-25] MEDS ORDERED: SEVOFLURANE INHAL SOLN 250 ML PEN BTL ONE (13:18)
[2020-11-25] MEDS ORDERED: LIDOCAINE HCL 2% LOCAL INJ 5 ML SDV VIAL INJ ONE (13:18)
[2020-11-25] MEDS ORDERED: DEXAMETHASONE SOD PHOS INJ 4 MG/ML VIAL ONE (13:18)
[2020-11-25 15:27] VITALS: BP 119/60
[2020-11-25 20:00] VITALS: BP 113/73
[2020-11-25 20:09] VITALS: BP 113/59
[2020-11-25] MEDS ORDERED: HYDROCODONE/APAP 5MG-325MG TAB PO PRN ×2 (20:30)
[2020-11-26 00:42] VITALS: BP 93/54
[2020-11-26] MEDS: SODIUM CHLORIDE 0.9% 1000ML 1,000 ML IV SCH (01:19)
[2020-11-26 04:00] VITALS: BP 103/57
[2020-11-26 05:35] LABS: BASOPHILS % 0.2 % (0.0-1.0); EOSINOPHILS % 0.1 % (0.0-6.0); HEMATOCRIT 32.6 % (34.2-44.1); HEMOGLOBIN 10.2 g/dL (12.0-16.0); LYMPHOCYTES # (AUTO) 1.6 (1.0-3.2); LYMPHOCYTES % 14.8 % (18.0-39.1); MEAN CORPUSCULAR HEMOGLOBIN 28.5 pg (28-32); MEAN CORPUSCULAR HGB CONC 31.3 g/dL (31-35); MEAN CORPUSCULAR VOLUME 91.1 fL (81-99); MONOCYTES # (AUTO) 0.7 (0.2-0.8); NEUTROPHILS # (AUTO) 8.6 (2.1-6.9); NEUTROPHILS % 78.4 % (38.7-80.0); PLATELET COUNT 152 x10e3/uL (140-360); RED BLOOD COUNT 3.58 x10e6/uL (3.6-5.1); RED CELL DISTRIBUTION WIDTH 13.2 % (11.7-14.4)
[2020-11-26 06:09] LABS: CALCIUM 7.5 mg/dL (8.4-10.2); CREATININE, SERUM 0.79 mg/dL (0.57-1.11)
[2020-11-26 08:00] VITALS: BP 122/64
[2020-11-26 08:16] VITALS: BP 122/64
[2020-11-26] MEDS ORDERED: CEFTRIAXONE 1 GM in SODIUM CHLORIDE 0.9% 50ML 50 ML IV SCH (09:00)
[2020-11-26] MEDS ORDERED: ZOLOFT50 MG PO (09:07)
[2020-11-26] MEDS ORDERED: HYDROCODON-ACE1 EAC9 PO (09:20)
[2020-11-26] MEDS ORDERED: LEVOFLOXACIN250 MG PO (09:50)
[2020-11-26] MEDS ORDERED: PYRIDIUM200 MG PO (09:51)
== END 2020-11-26 10:27 | disposition home or self-care (01) | DRG 660 ==
LOC: ER 04:27 → ERHOLD 06:04 → MED/SURG 09:09
PROVIDERS: ADMIT Internal Medicine; ATTEND Internal Medicine
PROC: 0T768DZ Dilation of Right Ureter with Intraluminal Device, Via Natural or Artificial Opening Endoscopic (ICD-10-PCS; 2020-11-25)
PROC: 0TC68ZZ Extirpation of Matter from Right Ureter, Via Natural or Artificial Opening Endoscopic (ICD-10-PCS; 2020-11-25)
PROC: 0T778ZZ Dilation of Left Ureter, Via Natural or Artificial Opening Endoscopic (ICD-10-PCS; 2020-11-25)
PROC: BT141ZZ Fluoroscopy of Kidneys, Ureters and Bladder using Low Osmolar Contrast (ICD-10-PCS; 2020-11-25)
PROC: BT141ZZ Fluoroscopy of Kidneys, Ureters and Bladder using Low Osmolar Contrast (ICD-10-PCS; principal; 2020-11-25 08:00)
DX: N13.2 Hydronephrosis with renal and ureteral calculous obstruction (principal); Q61.3 Polycystic kidney, unspecified; Q44.6 Cystic disease of liver; I10 Essential (primary) hypertension; I34.1 Nonrheumatic mitral (valve) prolapse; I11.9 Hypertensive heart disease without heart failure; N17.9 Acute kidney failure, unspecified; K76.0 Fatty (change of) liver, not elsewhere classified; N81.10 Cystocele, unspecified; R31.29 Other microscopic hematuria; Z20.822 Contact with and (suspected) exposure to COVID-19
CPT/HCPCS: 36415; 74018; 74176; 74420; 80048; 80053; 81001; 85025; 87086; 96361; 99284; C1758; C1769; C2617; J0696; J1100; J1170; J1885; J2001; J2250; J2270; J2405; J3010; J7030; U0002

== ENCOUNTER → 2020-12-07 | Day surgery (SDC) | payer OTHER ==
[2020-12-05 10:52] LABS: BASOPHILS % 0.4 % (0.0-1.0); EOSINOPHILS # (AUTO) 0.3 (0.0-0.4); HEMATOCRIT 39.1 % (34.2-44.1); HEMOGLOBIN 12.5 g/dL (12.0-16.0); LYMPHOCYTES # (AUTO) 1.9 (1.0-3.2); LYMPHOCYTES % 23.3 % (18.0-39.1); MEAN CORPUSCULAR HEMOGLOBIN 28.3 pg (28-32); MEAN CORPUSCULAR VOLUME 88.7 fL (81-99); MONOCYTES # (AUTO) 0.7 (0.2-0.8); MONOCYTES % 8.1 % (4.4-11.3); NEUTROPHILS # (AUTO) 5.1 (2.1-6.9); NEUTROPHILS % 63.7 % (38.7-80.0); PLATELET COUNT 181 x10e3/uL (140-360); RED BLOOD COUNT 4.41 x10e6/uL (3.6-5.1); RED CELL DISTRIBUTION WIDTH 12.7 % (11.7-14.4)
[2020-12-05 11:13] LABS: ALBUMIN 4.1 g/dL (3.5-5.0); ALBUMIN/GLOBULIN RATIO 1.1 (0.8-2.0); ANION GAP 16.7 mmol/L (8-16); CREATININE, SERUM 0.87 mg/dL (0.57-1.11); POTASSIUM 4.7 mmol/L (3.5-5.1)
[2020-12-05 11:14] LABS: CALCIUM 9.4 mg/dL (8.4-10.2)
[~2020-12-07] MED LIST changes: +FENTANYL CITRATE/PF 100MCG/2 ML INJ ONE; +GENTAMICIN 80MG/NS 100 ML 200 ML IV ONE; +HYDROCODON-ACE1 EAC9 PO; +LEVOFLOXACIN250 MG PO; +PYRIDIUM200 MG PO; +ZOLOFT50 MG PO
[2020-12-07 11:35] VITALS: BP 115/73
== END | disposition home or self-care (01) ==
LOC: OR 08:19
PROVIDERS: ATTEND Urology
DX: N20.0 Calculus of kidney (principal); Z96.0 Presence of urogenital implants; I10 Essential (primary) hypertension; R00.1 Bradycardia, unspecified; Z01.810 Encounter for preprocedural cardiovascular examination; Z01.812 Encounter for preprocedural laboratory examination; Z01.818 Encounter for other preprocedural examination; Z20.822 Contact with and (suspected) exposure to COVID-19
CPT/HCPCS: 36415; 50590; 74018; 80053; 83970; 84550; 85025; 93005; J1580; J3010; U0002

== ENCOUNTER → 2021-01-02 | Day surgery (SDC) | payer OTHER ==
[2020-12-31 15:33] LABS: BASOPHILS % 0.5 % (0.0-1.0); EOSINOPHILS # (AUTO) 0.3 (0.0-0.4); HEMATOCRIT 35.5 % (34.2-44.1); HEMOGLOBIN 11.3 g/dL (12.0-16.0); LYMPHOCYTES # (AUTO) 2.5 (1.0-3.2); LYMPHOCYTES % 29.8 % (18.0-39.1); MEAN CORPUSCULAR HEMOGLOBIN 27.6 pg (28-32); MEAN CORPUSCULAR HGB CONC 31.8 g/dL (31-35); MEAN CORPUSCULAR VOLUME 86.6 fL (81-99); MONOCYTES # (AUTO) 0.7 (0.2-0.8); MONOCYTES % 8.2 % (4.4-11.3); NEUTROPHILS # (AUTO) 4.8 (2.1-6.9); NEUTROPHILS % 58.1 % (38.7-80.0); PLATELET COUNT 268 x10e3/uL (140-360); RED CELL DISTRIBUTION WIDTH 12.2 % (11.7-14.4)
[2020-12-31 15:55] LABS: ANION GAP 15.2 mmol/L (8-16); CALCIUM 9.8 mg/dL (8.4-10.2); CREATININE, SERUM 1.01 mg/dL (0.57-1.11); POTASSIUM 4.2 mmol/L (3.5-5.1)
[~2021-01-02] MED LIST changes: +ACETAMINOPHEN 1000 MG/100 ML 100 ML IV ONE; +BELLADONNA/OPIUM 30 MG SUPP RC ONE; +DEXAMETHASONE SOD PHOS INJ 4 MG/ML VIAL ONE; +DIFLUCAN100 MG PO; -FENTANYL CITRATE/PF 100MCG/2 ML INJ ONE; +FLUCONAZOLE 200 MG/100 ML 100 ML IV ONE; +HYDROMORPHONE 1MG/1ML INJ ONE; +IOPAMIDOL 300MG/ML 50ML INFUS..BTL IV ONE; +KETOROLAC TROMETHAMINE 30 MG/ML VIAL ONE; +LIDOCAINE HCL 2% LOCAL INJ 5 ML SDV VIAL INJ ONE; +ONDANSETRON HCL INJ 2MG/ML 2ML 2 MG/ML VIAL ONE; +POVIDONE IODINE 0.05% 0.05 % ML PO ONE; +PROMETHAZINE HCL (IM) 25 MG/ML VIAL IM ONE; +PROPOFOL IV EMULSION 10 MG/ML 20 ML VIAL ONE; +SEVOFLURANE INHAL SOLN 250 ML PEN BTL ONE
[2021-01-02 11:35] VITALS: BP 115/76
== END | disposition home or self-care (01) ==
LOC: OR 06:05
PROVIDERS: ATTEND Urology
DX: N20.0 Calculus of kidney (principal); Z46.6 Encounter for fitting and adjustment of urinary device; N81.10 Cystocele, unspecified; N81.6 Rectocele; N36.41 Hypermobility of urethra; Q61.3 Polycystic kidney, unspecified; I10 Essential (primary) hypertension; Z01.812 Encounter for preprocedural laboratory examination; Z20.822 Contact with and (suspected) exposure to COVID-19
CPT/HCPCS: 36415; 52332; 52351; 52356; 74420; 80048; 84550; 85025; 87086; 88300; C1758; C1766; C1769; C2617; J0131; J1100; J1170; J1450; J1580; J1885; J2001; J2405; J2550; J2704; Q9967; U0002

== ENCOUNTER → 2021-01-21 | Day surgery (SDC) | payer OTHER ==
[2021-01-18 15:46] LABS: BASOPHILS % 0.4 % (0.0-1.0); EOSINOPHILS # (AUTO) 0.4 (0.0-0.4); EOSINOPHILS % 5.1 % (0.0-6.0); HEMATOCRIT 34.4 % (34.2-44.1); HEMOGLOBIN 10.5 g/dL (12.0-16.0); LYMPHOCYTES # (AUTO) 2.1 (1.0-3.2); LYMPHOCYTES % 30.1 % (18.0-39.1); MEAN CORPUSCULAR HEMOGLOBIN 26.9 pg (28-32); MEAN CORPUSCULAR HGB CONC 30.5 g/dL (31-35); MEAN CORPUSCULAR VOLUME 88.2 fL (81-99); MONOCYTES # (AUTO) 0.5 (0.2-0.8); MONOCYTES % 7.4 % (4.4-11.3); NEUTROPHILS # (AUTO) 3.9 (2.1-6.9); NEUTROPHILS % 56.6 % (38.7-80.0); PLATELET COUNT 178 x10e3/uL (140-360); RED CELL DISTRIBUTION WIDTH 12.8 % (11.7-14.4)
[2021-01-18 16:00] LABS: ANION GAP 13.1 mmol/L (8-16); CALCIUM 9.3 mg/dL (8.4-10.2); CREATININE, SERUM 0.94 mg/dL (0.57-1.11); POTASSIUM 4.1 mmol/L (3.5-5.1)
[~2021-01-21] MED LIST changes: -ACETAMINOPHEN 1000 MG/100 ML 100 ML IV ONE; -DEXAMETHASONE SOD PHOS INJ 4 MG/ML VIAL ONE; +FENTANYL CITRATE/PF 100MCG/2 ML INJ ONE; -FLUCONAZOLE 200 MG/100 ML 100 ML IV ONE; -HYDROMORPHONE 1MG/1ML INJ ONE; -KETOROLAC TROMETHAMINE 30 MG/ML VIAL ONE; -LIDOCAINE HCL 2% LOCAL INJ 5 ML SDV VIAL INJ ONE; +METOCLOPRAMIDE HCL 10 MG/2ML VIAL ONE; +PIPERACILLIN/TAZOBACTAM 3.375 GM VIAL ONE; -POVIDONE IODINE 0.05% 0.05 % ML PO ONE; -PROMETHAZINE HCL (IM) 25 MG/ML VIAL IM ONE; -PROPOFOL IV EMULSION 10 MG/ML 20 ML VIAL ONE; -SEVOFLURANE INHAL SOLN 250 ML PEN BTL ONE; +SODIUM CHLORIDE 0.9% 50ML 50 ML ONE
[2021-01-21 15:25] VITALS: BP 122/61
== END | disposition home or self-care (01) ==
LOC: OR 11:22
PROVIDERS: ATTEND Urology
DX: N20.0 Calculus of kidney (principal); Z46.6 Encounter for fitting and adjustment of urinary device; N81.10 Cystocele, unspecified; N81.6 Rectocele; N36.41 Hypermobility of urethra; N28.89 Other specified disorders of kidney and ureter; I10 Essential (primary) hypertension; F32.A Depression, unspecified; R00.1 Bradycardia, unspecified; Z01.812 Encounter for preprocedural laboratory examination; Z01.818 Encounter for other preprocedural examination; Z20.822 Contact with and (suspected) exposure to COVID-19
CPT/HCPCS: 36415; 52352; 52356; 74018; 74420; 80048; 85025; 88300; C1769; C2617; J1580; J2405; J2543; J2765; J3010; Q9967; U0002

== ENCOUNTER → 2021-02-15 | Day surgery (SDC) | payer OTHER ==
[2021-02-13 15:39] LABS: BASOPHILS % 0.2 % (0.0-1.0); EOSINOPHILS # (AUTO) 0.5 (0.0-0.4); EOSINOPHILS % 5.6 % (0.0-6.0); HEMATOCRIT 35.6 % (34.2-44.1); LYMPHOCYTES # (AUTO) 2.6 (1.0-3.2); LYMPHOCYTES % 31.7 % (18.0-39.1); MEAN CORPUSCULAR HEMOGLOBIN 26.5 pg (28-32); MEAN CORPUSCULAR HGB CONC 30.9 g/dL (31-35); MEAN CORPUSCULAR VOLUME 85.8 fL (81-99); MONOCYTES # (AUTO) 0.6 (0.2-0.8); MONOCYTES % 6.8 % (4.4-11.3); NEUTROPHILS # (AUTO) 4.5 (2.1-6.9); NEUTROPHILS % 55.3 % (38.7-80.0); PLATELET COUNT 208 x10e3/uL (140-360); RED BLOOD COUNT 4.15 x10e6/uL (3.6-5.1); RED CELL DISTRIBUTION WIDTH 13.6 % (11.7-14.4)
[2021-02-13 15:57] LABS: ANION GAP 12.6 mmol/L (8-16); CALCIUM 9.1 mg/dL (8.4-10.2); CREATININE, SERUM 0.85 mg/dL (0.57-1.11); POTASSIUM 3.6 mmol/L (3.5-5.1)
[~2021-02-15] MED LIST changes: -METOCLOPRAMIDE HCL 10 MG/2ML VIAL ONE; -ONDANSETRON HCL INJ 2MG/ML 2ML 2 MG/ML VIAL ONE; -PIPERACILLIN/TAZOBACTAM 3.375 GM VIAL ONE; -SODIUM CHLORIDE 0.9% 50ML 50 ML ONE; +UROCIT-K10 MEQ PO
[2021-02-15 13:15] VITALS: BP 146/67
== END | disposition home or self-care (01) ==
LOC: OR 09:40
PROVIDERS: ATTEND Urology
DX: N20.0 Calculus of kidney (principal); Z46.6 Encounter for fitting and adjustment of urinary device; Q61.3 Polycystic kidney, unspecified; N81.10 Cystocele, unspecified; N81.6 Rectocele; N36.41 Hypermobility of urethra; I10 Essential (primary) hypertension; F32.A Depression, unspecified; Z01.812 Encounter for preprocedural laboratory examination; Z01.818 Encounter for other preprocedural examination; Z20.822 Contact with and (suspected) exposure to COVID-19
CPT/HCPCS: 36415; 52356; 74018; 74420; 80048; 84550; 85025; 88300; C1758; C1766; C1769; C2617; J1580; J3010; Q9967; U0002

== ENCOUNTER → 2021-03-22 | Day surgery (SDC) | payer OTHER ==
[2021-03-20 14:17] LABS: BASOPHILS % 0.3 % (0.0-1.0); EOSINOPHILS # (AUTO) 0.3 (0.0-0.4); EOSINOPHILS % 3.4 % (0.0-6.0); HEMOGLOBIN 11.9 g/dL (12.0-16.0); LYMPHOCYTES # (AUTO) 2.4 (1.0-3.2); LYMPHOCYTES % 25.3 % (18.0-39.1); MEAN CORPUSCULAR HEMOGLOBIN 26.7 pg (28-32); MEAN CORPUSCULAR HGB CONC 31.3 g/dL (31-35); MEAN CORPUSCULAR VOLUME 85.4 fL (81-99); MONOCYTES # (AUTO) 0.5 (0.2-0.8); MONOCYTES % 5.8 % (4.4-11.3); NEUTROPHILS # (AUTO) 6.1 (2.1-6.9); NEUTROPHILS % 64.9 % (38.7-80.0); PLATELET COUNT 179 x10e3/uL (140-360); RED BLOOD COUNT 4.45 x10e6/uL (3.6-5.1)
[2021-03-20 14:34] LABS: CREATININE, SERUM 0.99 mg/dL (0.57-1.11)
[2021-03-20 14:55] LABS: ANION GAP 14.8 mmol/L (8-16); POTASSIUM 3.8 mmol/L (3.5-5.1)
[~2021-03-22] MED LIST changes: +ACETAMINOPHEN 1000 MG/100 ML 100 ML IV ONE; +CEFTRIAXONE 1 GM VIAL ONE; +DEXAMETHASONE SOD PHOS INJ 4 MG/ML SDV ONE; +EPHEDRINE SULFATE INJ 50 MG/ML VIAL ONE; +FLUCONAZOLE 200 MG/100 ML IV ONE; +LIDOCAINE HCL 2% LOCAL INJ 5 ML SDV VIAL INJ ONE; +MIDAZOLAM HCL 2 MG/2 ML VIAL ONE; +ONDANSETRON HCL INJ 2MG/ML 2ML 2 MG/ML VIAL ONE; +PHENAZOPYRIDINE HCL 100 MG TAB ONE; +POVIDONE IODINE 0.05% 0.05 % ML PO ONE; +PROPOFOL IV EMULSION 10 MG/ML 20 ML VIAL ONE; +SEVOFLURANE INHAL SOLN 250 ML PEN BTL ONE; +SODIUM CHLORIDE 0.9% 50ML 50 ML ONE
[2021-03-22 12:35] VITALS: BP 133/66
== END | disposition home or self-care (01) ==
LOC: OR 08:13
PROVIDERS: ATTEND Urology
DX: N20.0 Calculus of kidney (principal); Z46.6 Encounter for fitting and adjustment of urinary device; N81.10 Cystocele, unspecified; N81.6 Rectocele; N36.41 Hypermobility of urethra; Q61.3 Polycystic kidney, unspecified; N28.89 Other specified disorders of kidney and ureter; N13.30 Unspecified hydronephrosis; I10 Essential (primary) hypertension; F32.A Depression, unspecified; Z01.810 Encounter for preprocedural cardiovascular examination; Z01.812 Encounter for preprocedural laboratory examination; Z01.818 Encounter for other preprocedural examination; Z20.822 Contact with and (suspected) exposure to COVID-19; Z79.899 Other long term (current) drug therapy
CPT/HCPCS: 36415; 52352; 74018; 74420; 80048; 84550; 85025; 88300; 93005; C1766; C1769; J0131; J0696; J1100; J1450; J1580; J2001; J2250; J2405; J2704; J3010; Q9967; U0002

== ENCOUNTER 2021-08-21 00:23 | Inpatient (IN) | payer OTHER ==
[~2021-08-21] VITALS: Ht 160 cm; Wt 81.9 kg
[~2021-08-21 00:23] MED LIST changes: -ACETAMINOPHEN 1000 MG/100 ML 100 ML IV ONE; -BELLADONNA/OPIUM 30 MG SUPP RC ONE; -CEFTRIAXONE 1 GM VIAL ONE; -DEXAMETHASONE SOD PHOS INJ 4 MG/ML SDV ONE; -EPHEDRINE SULFATE INJ 50 MG/ML VIAL ONE; -FENTANYL CITRATE/PF 100MCG/2 ML INJ ONE; -FLUCONAZOLE 200 MG/100 ML IV ONE; -GENTAMICIN 80MG/NS 100 ML 200 ML IV ONE; -IOPAMIDOL 300MG/ML 50ML INFUS..BTL IV ONE; -LIDOCAINE HCL 2% LOCAL INJ 5 ML SDV VIAL INJ ONE; -MIDAZOLAM HCL 2 MG/2 ML VIAL ONE; -ONDANSETRON HCL INJ 2MG/ML 2ML 2 MG/ML VIAL ONE; -PHENAZOPYRIDINE HCL 100 MG TAB ONE; -POVIDONE IODINE 0.05% 0.05 % ML PO ONE; -PROPOFOL IV EMULSION 10 MG/ML 20 ML VIAL ONE; -SEVOFLURANE INHAL SOLN 250 ML PEN BTL ONE; -SODIUM CHLORIDE 0.9% 50ML 50 ML ONE
[2021-08-21] MEDS ORDERED: KETOROLAC TROMETHAMINE 30 MG/ML VIAL IV STA (00:38)
[2021-08-21] MEDS ORDERED: ONDANSETRON HCL INJ 2MG/ML 2ML 2 MG/ML VIAL IV STA (00:40)
[2021-08-21 01:01] LABS: BASOPHILS % 0.3 % (0.0-1.0); EOSINOPHILS # (AUTO) 0.3 (0.0-0.4); HEMATOCRIT 35.6 % (34.2-44.1); HEMOGLOBIN 11.7 g/dL (12.0-16.0); LYMPHOCYTES # (AUTO) 1.9 (1.0-3.2); LYMPHOCYTES % 19.4 % (18.0-39.1); MEAN CORPUSCULAR HEMOGLOBIN 28.7 pg (28-32); MEAN CORPUSCULAR HGB CONC 32.9 g/dL (31-35); MEAN CORPUSCULAR VOLUME 87.5 fL (81-99); MONOCYTES # (AUTO) 0.6 (0.2-0.8); MONOCYTES % 5.9 % (4.4-11.3); NEUTROPHILS # (AUTO) 6.8 (2.1-6.9); NEUTROPHILS % 70.8 % (38.7-80.0); PLATELET COUNT 161 x10e3/uL (140-360); RED BLOOD COUNT 4.07 x10e6/uL (3.6-5.1); RED CELL DISTRIBUTION WIDTH 12.8 % (11.7-14.4)
[2021-08-21 01:02] LABS: CLARITY,URINE SL CLOUDY (CLEAR); COLOR,URINE YELLOW (YELLOW); KETONES,URINE NEGATIVE (NEGATIVE); LEUKOCYTE ESTERASE ,URINE TRACE (NEGATIVE); NITRITE,URINE NEGATIVE (NEGATIVE); PROTEIN,URINE DIPSTICK 1+ (NEGATIVE); URINE UROBILINOGEN 0.2 mg/dL (0.2 - 1)
[2021-08-21 01:06] LABS: BACTERIA,URINE MANY /HPF; EPITHELIAL CELLS,URINE MODERATE /LPF
[2021-08-21 01:17] LABS: ALBUMIN 3.6 g/dL (3.5-5.0); ALBUMIN/GLOBULIN RATIO 0.9 (0.8-2.0); ANION GAP 14.1 mmol/L (8-16); CALCIUM 8.9 mg/dL (8.4-10.2); CREATININE, SERUM 1.35 mg/dL (0.57-1.11); POTASSIUM 4.1 mmol/L (3.5-5.1)
[2021-08-21] MEDS ORDERED: HYDROMORPHONE 1MG/1ML INJ IV STA (01:39)
[2021-08-21 03:53] VITALS: BP 90/46
[2021-08-21] MEDS ORDERED: SODIUM CHLORIDE 0.9% 250ML 250 ML ONE (03:59)
[2021-08-21 04:31] VITALS: BP 90/46
[2021-08-21] MEDS: HYDROMORPHONE 1MG/1ML INJ IV PRN ×5 (05:43→21:09)
[2021-08-21 08:57] VITALS: BP 93/55
[2021-08-21 09:31] VITALS: BP 93/55
[2021-08-21] MEDS: SODIUM CHLORIDE 0.9% 1000ML 1,000 ML IV SCH ×2 (09:37→18:09)
[2021-08-21] MEDS: ONDANSETRON HCL INJ 2MG/ML 2ML 2 MG/ML VIAL IV PRN ×4 (10:39→21:09)
[2021-08-21 12:31] VITALS: BP 93/59
[2021-08-21] MEDS: POTASSIUM CITRATE ER 10 MEQ TAB PO SCH ×2 (14:15→20:58)
[2021-08-21 20:00] VITALS: BP 123/71
[2021-08-22] VITALS: BP 123/61
[2021-08-22] MEDS: SODIUM CHLORIDE 0.9% 1000ML 1,000 ML IV SCH (01:25)
[2021-08-22 04:00] VITALS: BP 95/66
[2021-08-22] MEDS: ONDANSETRON HCL INJ 2MG/ML 2ML 2 MG/ML VIAL IV PRN (05:30)
[2021-08-22] MEDS: HYDROMORPHONE 1MG/1ML INJ IV PRN (05:30)
[2021-08-22 07:01] LABS: ALBUMIN 3.2 g/dL (3.5-5.0); ALBUMIN/GLOBULIN RATIO 0.9 (0.8-2.0); ANION GAP 9.3 mmol/L (8-16); CREATININE, SERUM 1.06 mg/dL (0.57-1.11); POTASSIUM 4.3 mmol/L (3.5-5.1)
[2021-08-22 07:56] LABS: BASOPHILS % 0.3 % (0.0-1.0); EOSINOPHILS # (AUTO) 0.3 (0.0-0.4); EOSINOPHILS % 3.8 % (0.0-6.0); HEMOGLOBIN 10.9 g/dL (12.0-16.0); LYMPHOCYTES # (AUTO) 1.6 (1.0-3.2); MEAN CORPUSCULAR HEMOGLOBIN 28.6 pg (28-32); MEAN CORPUSCULAR HGB CONC 32.1 g/dL (31-35); MEAN CORPUSCULAR VOLUME 89.2 fL (81-99); MONOCYTES # (AUTO) 0.6 (0.2-0.8); MONOCYTES % 7.5 % (4.4-11.3); PLATELET COUNT 144 x10e3/uL (140-360); RED BLOOD COUNT 3.81 x10e6/uL (3.6-5.1)
[2021-08-22] MEDS ORDERED: CIPRO250 MG PO (08:10)
[2021-08-22] MEDS ORDERED: ONDANSETRON ODT4 MG PO (08:11)
[2021-08-22 08:47] VITALS: BP 95/66
[2021-08-22 09:00] VITALS: BP 112/61
[2021-08-22] MEDS ORDERED: ESTRADIOL 1 MG TAB PO SCH (09:00)
[2021-08-22] MEDS ORDERED: SERTRALINE HCL 50 MG TAB PO SCH (09:00)
== END 2021-08-22 08:55 | disposition home or self-care (01) | DRG 690 ==
LOC: ER 00:38 → ERHOLD 02:34 → MED/SURG3 03:19 → UNDODISIN 10:49
PROVIDERS: ADMIT Internal Medicine; ATTEND Internal Medicine
DX: N13.6 Pyonephrosis (principal); Q61.3 Polycystic kidney, unspecified; K76.89 Other specified diseases of liver; K76.0 Fatty (change of) liver, not elsewhere classified; E66.9 Obesity, unspecified; N28.9 Disorder of kidney and ureter, unspecified; Z68.31 Body mass index [BMI] 31.0-31.9, adult; Z87.442 Personal history of urinary calculi; Z84.1 Family history of disorders of kidney and ureter; Z84.89 Family history of other specified conditions; I13.10 Hypertensive heart and chronic kidney disease without heart failure, with stage 1 through stage 4 chronic kidney disease, or unspecified chronic kidney disease; N18.1 Chronic kidney disease, stage 1; Z20.822 Contact with and (suspected) exposure to COVID-19
CPT/HCPCS: 36415; 74176; 80053; 81001; 81025; 85025; 87086; 88300; 96361; 99284; J1170; J1885; J2405; J2543; J7030; J7050; U0002

== ENCOUNTER 2025-02-02 11:46 | Emergency (ER) | payer OTHER ==
[~2025-02-02] VITALS: Ht 160 cm; Wt 72.6 kg
[~2025-02-02 11:46] MED LIST changes: +CIPRO250 MG PO; +ONDANSETRON ODT4 MG PO
[2025-02-02 12:20] LABS: BASOPHILS % 0.5 % (0.0-1.0); EOSINOPHILS % 2.4 % (0.0-6.0); LYMPHOCYTES % 26.1 % (18.0-39.1); MONOCYTES % 7.5 % (4.4-11.3); NEUTROPHILS % 63.3 % (38.7-80.0); RED CELL DISTRIBUTION WIDTH 13.0 % (11.7-14.4)
[2025-02-02 12:29] LABS: LEUKOCYTE ESTERASE ,URINE TRACE (NEGATIVE); PROTEIN,URINE DIPSTICK NEGATIVE (NEGATIVE); URINE UROBILINOGEN 0.2 mg/dL (0.2 - 1)
[2025-02-02 12:30] VITALS: PULSE 72; RESP 16; TEMP 98.3
[2025-02-02 12:35] LABS: EPITHELIAL CELLS,URINE FEW /LPF
[2025-02-02] MEDS: ONDANSETRON HCL INJ 2MG/ML 2ML 2 MG/ML VIAL IV STA (12:39)
[2025-02-02] MEDS: KETOROLAC TROMETHAMINE 30 MG/ML VIAL IV STA (12:39)
[2025-02-02] MEDS: FENTANYL CITRATE/PF 100MCG/2 ML INJ IV ONE (12:40)
[2025-02-02 12:42] LABS: EST GLOMERULAR FILTRATION RATE 65.0 ML/MIN (>=60)
[2025-02-02] MEDS ORDERED: CEFDINIR300 MG PO (13:42)
[2025-02-02] MEDS ORDERED: KETOROLAC TROME10 MG PO (13:54)
[2025-02-02 15:16] VITALS: BP 135/81; PULSE 78; RESP 18; O2SAT 99
== END 2025-02-02 14:15 | disposition home or self-care (01) ==
LOC: ER 11:50
DX: R10.9 Unspecified abdominal pain (principal); N39.0 Urinary tract infection, site not specified; I10 Essential (primary) hypertension; N28.1 Cyst of kidney, acquired
CPT/HCPCS: 36415; 74176; 80053; 81001; 85025; 87086; 99284; J1885; J2405; J3010